=== PATIENT | female | born 1965 | race Caucasian/White ===

== ENCOUNTER 2017-01-04 13:18 | Day surgery (SDC) | payer OTHER ==
[~2017-01-04 13:18] MED LIST: Lactated Ringers 1,000 ML IV SCH; Lidocaine 1%/Sod Bicarbonate in NS 8.4% 1 ML Syringe PRN; Sodium Chloride 0.9% 10 ML Syringe FLUSH PRN
[2017-01-04] MEDS ORDERED: Scopolamine 1.5 MG Transdermal Patch TRDERM SCH (14:45)
--- NOTE | 2017-01-04 14:52 | PCM.PREANE ---
Preanesthetic Assessment - Procedure Proposed Procedure: Diagnostic EGD, Screening colonoscopy - Anesthesia/Transfusion/Family Hx Anesthesia History: Prior Anesthesia Without Reaction Type of Anesthesia Reaction: Excessive Nausea/Vomiting Family History of Anesthesia Reaction: No Transfusion History: Prior Transfusion Without Reaction Intubation History: Unknown Additional History: Wegeners disease, CKD stage 3 - Review of Systems General: No Symptoms Pulmonary: Other (Asthma- uses prn albuterol inhaler, advair bid ) Cardiovascular: Other (HTN) Gastrointestinal: No symptoms Neurological: No Symptoms Other: Reports: None - Physical Assessment NPO Status Date: 01/03/17 NPO Status Time: 17:00 O2 Sat by Pulse Oximetry: 94 Respiratory Rate: 16 Vital Signs: Last Vital Signs Temp 36.8 C 01/04/17 13:35 Pulse 60 01/04/17 13:35 Resp 16 01/04/17 13:35 BP 127/63 01/04/17 13:35 Pulse Ox 94 L 01/04/17 13:35 Height: 1.7 m Weight: 113.398 kg ASA Class: 2 Mental Status: Alert & Oriented x3 Airway Class: Mallampati = 3 Dentition: Reports: Normal Dentition Thyro-Mental Finger Breadths: 3 Mouth Opening Finger Breadths: 3 ROM/Head Extension: Full Lungs: Clear to auscultation, Normal respiratory effort Cardiovascular: Regular Rate, Regular Rhythm - Lab Values: Laboratory Last Values Sodium 142 mEq/L (136-145) 01/04/17 14:01 Potassium 4.1 mEq/L (3.5-5.1) 01/04/17 14:01 Chloride 106 mEq/L (98-107) 01/04/17 14:01 Carbon Dioxide 24 mEq/L (21-32) 01/04/17 14:01 Anion Gap 16.1 (5-15) H 01/04/17 14:01 BUN 26 mg/dL (7-18) H 01/04/17 14:01 Creatinine 1.6 mg/dL (0.55-1.02) H 01/04/17 14:01 Est Cr Clr Drug Dosing 39.54 mL/min 01/04/17 14:01 Estimated GFR (MDRD) 34 mL/min (>60) 01/04/17 14:01 BUN/Creatinine Ratio 16.3 (14-18) 01/04/17 14:01 Glucose 88 mg/dL (74-106) 01/04/17 14:01 Calcium 9.4 mg/dL (8.5-10.1) 01/04/17 14:01 - Allergies Allergies/Adverse Reactions: Allergies Allergy/AdvReac Type Severity Reaction Status Date / Time No Known Allergies Allergy Verified 01/01/17 14:16 - Blood Blood Available: No Product(s) Available: None - Anesthesia Plan Pre-Op Medication Ordered: None - Acknowledgements Anesthesia Type Planned: MAC Pt an Appropriate Candidate for the Planned Anesthesia: Yes Alternatives and Risks of Anesthesia Discussed w Pt/Guardian: Yes Pt/Guardian Understands and Agrees with Anesthesia Plan: Yes PreAnesthesia Questionnaire HEENT History: Reports: Otitis Media Other HEENT History: chronic hoarseness, nasal septum perforation, thrush Cardiovascular History: Reports: High Cholesterol, Hypertension Respiratory History: Reports: Asthma, Sleep Apnea Other Respiratory History: uses cpap, has hoarse voice, hx of PE.bronchosocpy Gastrointestinal History: Reports: GERD Other Gastrointestinal History: PPI use, PONV Genitourinary History: Reports: Chronic Renal Insuffiency, Other (See Below) Other Genitourinary History: wegeners granulomatosis [employer] AG[employer] History: Reports: None Other OB/BYN History: dense breast tissue Musculoskeletal History: Reports: None Other Musculoskeletal History: lower extremity edema, left total knee replacement Neurological History: Reports: Migraines Psychiatric History: Reports: None Endocrine/Metabolic History: Reports: Other (See Below) Other Endocrine/Metabolic History: thyromegally Hematologic History: Reports: Polycythemia, Other (See Below) Other Hematologic History: history of coumadin & xarelto Immunologic History: Reports: Other (See Below) Other Immunologic History: 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) Oncologic (Cancer) History: Reports: Breast Dermatologic History: Reports: None - Past Surgical History HEENT Surgical History: Other HEENT Surgeries/Procedures: nasal septal perforation, thrush GI Surgical History: Female Surgical History: Reports: Breast Biopsy, Breast Implant, Breast Reconstruction, Breast Reduction - SUBSTANCE USE Smoking Status *Q: Never Smoker Second Hand Smoke Exposure: No Recreational Drug Use History: No - HOME MEDS Home Medications: Home Meds Albuterol [Proair HFA] 2 puff INH Q4H PRN 07/23/16 [History] Doxazosin Mesylate [Cardura] 1 mg PO DAILY 07/23/16 [History] Exemestane 25 mg PO DAILY 07/23/16 [History] Hydrochlorothiazide 25 mg PO DAILY 07/23/16 [History] Multivitamin [Multivitamins] 1 tab PO DAILY 07/23/16 [History] Omeprazole 20 mg PO DAILY 07/23/16 [History] Potassium Chloride 10 meq PO DAILY 07/23/16 [History] Verapamil [Calan SR] 240 mg PO DAILY 07/23/16 [History] Fluticasone/Salmeterol [Advair 250-50 Diskus] 1 puff INH ASDIRECTED 01/04/17 [ History] - CURRENT (IN HOUSE) MEDS Current Meds: Current Medications Lactated Ringer's (Ringers, Lactated) 1,000 mls @ 125 mls/hr IV ASDIRECTED ASHU Stop: 01/04/17 23:00 Last Admin: 01/04/17 14:01 Dose: 125 mls/hr Lidocaine/Sodium Bicarbonate (Buffered Lidocaine 1% In Ns 8.4%) 0.25 ml .XX ONETIME PRN PRN Reason: Prior to IV Start Stop: 01/04/17 18:00 Scopolamine (Transderm-Scop) 1.5 mg TRDERM ONETIME ASHU Stop: 01/04/17 19:00 Last Admin: 01/04/17 14:45 Dose: 1.5 mg Sodium Chloride (Saline Flush) 10 ml FLUSH ASDIRECTED PRN PRN Reason: Keep Vein Open Stop: 01/04/17 18:00
--- NOTE | 2017-01-04 16:03 | PCM.HP ---
H&P History of Present Illness - General Date of Service: 01/04/17 Source of Information: Patient History Limitations: Reports: No Limitations - History of Present Illness Initial Comments - Free Text/Narative: 51 yo woman with inability to wean from PPIs and family hx of colon cancer presents for diagnostic EGD and screening colonoscopy. No changes in her health since she was last seen in the office. - Related Data Allergies/Adverse Reactions: Allergies Allergy/AdvReac Type Severity Reaction Status Date / Time No Known Allergies Allergy Verified 01/01/17 14:16 Home Medications: Home Meds Albuterol [Proair HFA] 2 puff INH Q4H PRN 07/23/16 [History] Doxazosin Mesylate [Cardura] 1 mg PO DAILY 07/23/16 [History] Exemestane 25 mg PO DAILY 07/23/16 [History] Hydrochlorothiazide 25 mg PO DAILY 07/23/16 [History] Multivitamin [Multivitamins] 1 tab PO DAILY 07/23/16 [History] Omeprazole 20 mg PO DAILY 07/23/16 [History] Potassium Chloride 10 meq PO DAILY 07/23/16 [History] Verapamil [Calan SR] 240 mg PO DAILY 07/23/16 [History] Fluticasone/Salmeterol [Advair 250-50 Diskus] 1 puff INH ASDIRECTED 01/04/17 [ History] Past Medical History HEENT History: Reports: Otitis Media Other HEENT History: chronic hoarseness, nasal septum perforation, thrush Cardiovascular History: Reports: High Cholesterol, Hypertension Respiratory History: Reports: Asthma, Sleep Apnea Other Respiratory History: uses cpap, has hoarse voice, hx of PE.bronchosocpy Gastrointestinal History: Reports: GERD Other Gastrointestinal History: PPI use, PONV Genitourinary History: Reports: Chronic Renal Insuffiency, Other (See Below) Other Genitourinary History: wegeners granulomatosis [employer]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 History: Reports: None Other OB/BYN History: dense breast tissue Musculoskeletal History: Reports: None Other Musculoskeletal History: lower extremity edema, left total knee replacement Neurological History: Reports: Migraines Psychiatric History: Reports: None Endocrine/Metabolic History: Reports: Other (See Below) Other Endocrine/Metabolic History: thyromegally Hematologic History: Reports: Polycythemia, Other (See Below) Other Hematologic History: history of coumadin & xarelto Immunologic History: Reports: Other (See Below) Other Immunologic History: 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) Oncologic (Cancer) History: Reports: Breast Dermatologic History: Reports: None - Past Surgical History HEENT Surgical History: Other HEENT Surgeries/Procedures: nasal septal perforation, thrush GI Surgical History: Female Surgical History: Reports: Breast Biopsy, Breast Implant, Breast Reconstruction, Breast Reduction Social & Family History - Family History HEENT: Reports: Cataract GI: Reports: GERD OBGYN: Reports: Endocrine/Metabolic: Reports: Diabetes, type II Other Endocrine/Metabolic Family History: dad Hematologic: Reports: None Dermatologic: Reports: Psoriasis Other Dermatologic Family History: dad Oncologic: Reports: Colon Other Oncologic Family History: mom passed - Tobacco Use Smoking Status *Q: Never Smoker Second Hand Smoke Exposure: No - Caffeine Use Caffeine Use: Reports: Coffee, Soda - Recreational Drug Use Recreational Drug Use: No Drug Use in Last 12 Months: No H&P Review of Systems - Review of Systems: Review Of Systems: ROS reveals no pertinent complaints other than HPI. Exam - Exam Exam: See Below - Vital Signs Vital Signs: Last Vital Signs Temp 98.2 F 01/04/17 13:35 Pulse 60 01/04/17 13:35 Resp 16 01/04/17 14:57 BP 127/63 01/04/17 13:35 Pulse Ox 94 L 01/04/17 14:57 Weight: 250 lb - Exam General: Alert, Oriented, Cooperative HEENT: Conjunctiva Clear. No: Scleral Icterus Neck: Supple Lungs: Normal Respiratory Effort Cardiovascular: Regular Rate Abdomen: Soft. No: Distention, Guarding, Rigidity Extremities: No: Cyanosis Skin: Warm, Dry, Intact Neurological: Normal Speech Neuro Extensive - Mental Status: Alert, Oriented x3, Normal Mood/Affect, Normal Cognition Psychiatric: Alert, Normal Affect, Normal Mood - Patient Data Lab Results Last 24 hrs: Laboratory Results - last 24 hr 01/04/17 Range/Units 14:01 Sodium 142 (136-145) mEq/L Potassium 4.1 (3.5-5.1) mEq/L Chloride 106 (98-107) mEq/L Carbon Dioxide 24 (21-32) mEq/L Anion Gap 16.1 H (5-15) BUN 26 H (7-18) mg/dL Creatinine 1.6 H (0.55-1.02) mg/dL Est Cr Clr Drug Dosing 39.54 mL/min Estimated GFR (MDRD) 34 (>60) mL/min BUN/Creatinine Ratio 16.3 (14-18) Glucose 88 (74-106) mg/dL Calcium 9.4 (8.5-10.1) mg/dL Result Diagrams: 01/04/17 14:01 *Q Meaningful Use (ADM) - VTE *Q VTE Criteria *Q: - Stroke *Q Stroke Criteria *Q: - AMI *Q AMI Criteria *Q: - Problem List (1) GERD (gastroesophageal reflux disease) SNOMED Code(s): 037905452 ICD Code: K21.9 - GASTRO-ESOPHAGEAL REFLUX DISEASE WITHOUT ESOPHAGITIS Status: Acute Current Visit: Yes (2) Family hx of colon cancer SNOMED Code(s): 258090465 ICD Code: Z80.0 - FAMILY HISTORY OF MALIGNANT NEOPLASM OF DIGESTIVE ORGANS Status: Acute Current Visit: Yes Problem List Initiated/Reviewed/Updated: Yes Orders Last 24hrs: Active Orders 24 hr Category Date Time Status Peripheral IV Care [RC] . DIRECTED Care 01/04/17 00:01 Active Verify Patient Consent Obtain [RC] ASDIRECTED Care 01/04/17 00:01 Active Lactated Ringers [Ringers, Lactated] 1,000 ml Med 01/04/17 00:01 Active IV ASDIRECTED Lidocaine 1%/Sod Bicarbonate [Buffered Lidocaine 1% in Med 01/04/17 00:01 Active NS 8.4%] 0.25 ml .XX ONETIME PRN Scopolamine [Transderm-Scop] Med 01/04/17 14:45 Active 1.5 mg TRDERM ONETIME Sodium Chloride 0.9% [Saline Flush] Med 01/04/17 00:01 Active 10 ml FLUSH ASDIRECTED PRN Medication Administration Instruction [OM.PC] Routine Oth 01/04/17 00:01 Ordered Peripheral IV Insertion Adult [OM.PC] Routine Oth 01/04/17 00:01 Ordered Medication Orders Lactated Ringer's (Ringers, Lactated) 1,000 mls @ 125 mls/hr IV ASDIRECTED ASHU Stop: 01/04/17 23:00 Last Admin: 01/04/17 14:01 Dose: 125 mls/hr Lidocaine/Sodium Bicarbonate (Buffered Lidocaine 1% In Ns 8.4%) 0.25 ml .XX ONETIME PRN PRN Reason: Prior to IV Start Stop: 01/04/17 18:00 Scopolamine (Transderm-Scop) 1.5 mg TRDERM ONETIME ASHU Stop: 01/04/17 19:00 Last Admin: 01/04/17 14:45 Dose: 1.5 mg Sodium Chloride (Saline Flush) 10 ml FLUSH ASDIRECTED PRN PRN Reason: Keep Vein Open Stop: 01/04/17 18:00 Assessment/Plan Comment:: 51 yo woman w/ hx of inability to wean from PPIs and family hx of colon cancer Proceed with EGD and colonoscopy as planned.
[2017-01-04] MEDS ORDERED: fentaNYL 100 MCG/2 ML SDV ONE (16:18)
[2017-01-04] MEDS ORDERED: Midazolam 1 MG/ML 2 ML SDV ONE (16:19)
[2017-01-04] MEDS ORDERED: Propofol 200 MG/20 ML SDV ONE ×3 (16:19→16:44)
--- NOTE | 2017-01-04 16:50 | PCM48HPAN ---
Post Anesthesia Note - EVALUATION WITHIN 48HRS OF ANESTHETIC Vital Signs in Normal Range: Yes Patient Participated in Evaluation: Yes Respiratory Function Stable: Yes Airway Patent: Yes Cardiovascular Function Stable: Yes Hydration Status Stable: Yes Pain Control Satisfactory: Yes Nausea and Vomiting Control Satisfactory: Yes Mental Status Recovered: Yes
--- NOTE | 2017-01-04 16:52 | PCM.OPNOTE ---
- General Post-Op/Procedure Note Date of Surgery/Procedure: 01/04/17 Operative Procedure(s): Diagnostic EGD with cold forceps biopsy, high risk screening colonoscopy Pre Op Diagnosis: Inability to wean from proton pump inhibitors, family history of colon cancer Post-Op Diagnosis: Gastritis, gastric polyps, diverticulosis, poor colonoscopy prep Anesthesia Technique: MAC Primary Surgeon: Faiza Diaz Anesthesia Provider: Miko Ford Pathology: 1. Small bowel biopsy 2. Antral biopsy 3. Distal esophageal biopsy 4. Gastric polyp Fluid Replacement, Intraop: 1,400 (mL crystalloid ) EBL in mLs: 1 Complications: None Condition: Good Free Text/Narrative:: INDICATION FOR PROCEDURE: The patient is a 51-year-old woman who is a patient of Dr. Antonieta Rolon who presents for evaluation for high risk screening colonoscopy due to family history of colon cancer in her mother and 2 uncles. She also had a history of reflux, heartburn, and inability to wean from a PPI. Performing a colonoscopy and EGD and the associated risks of the procedures had been discussed with the patient. The patient found these risks acceptable and agreed to proceed. DESCRIPTION OF PROCEDURE: The patient was taken to the operating room and placed in the left lateral decubitus position. After induction of adequate sedation, a bite block was placed. A standard Olympus gastroscope was inserted into the oropharynx and guided down the esophagus without difficulty. The gastroesophageal junction was appreciated at 39 cm from the teeth. There was no evidence of stricture or esophageal ulcerations. The scope was advanced into the stomach, and there was mild gastritis, worst around the antrum. The scope was passed into the proximal jejunum and the duodenum which were unremarkable. There were no petechiae or ulcerations. The proximal jejunum was grossly normal in appearance. Multiple cold forceps biopsies were obtained of the proximal jejunum and duodenum. The scope was withdrawn into the antrum, and additional cold forceps biopsies were obtained. The remainder of the gastric body was examined, and there a few small gastric polyps, the largest was removed with cold forceps polypectomy. The scope was retroflexed, and there was no evidence of hiatal hernia. The scope was straightened and withdrawn to the GE junction. Additional cold forceps biopsies were obtained of the distal esophagus. The scope was withdrawn through the remainder of the esophagus and no further abnormalities were noted. The posterior oropharynx was grossly normal in appearance. The scope was fully withdrawn and attention was then turned to the colonoscopy. A digital rectal exam was performed which was unremarkable. An Olympus colonoscope was inserted into the rectum and guided under direct visualization to the appendiceal orifice and ileocecal valve. The scope was then slowly withdrawn through the colon. The quality of the prep was poor and some small polyps or other lesions may have been missed due to the quality of the prep. There was no evidence of angiodysplasias. Diverticulosis was present in the sigmoid colon. There were no large mass lesions or obvious large polyps. The scope was withdrawn into the rectum and retroflexed. There was no significant prominence of the patient's internal hemorrhoids. The scope was straightened, the colon was desufflated,and the scope was withdrawn. The patient was awakened from sedation and transferred to the recovery room in stable condition having tolerated the procedure well. POSTOPERATIVE PLAN: I discussed with the patient and her family my intraoperative findings and recommendations. The patient will follow up in approximately 7-10 days to discuss pathology and how their symptoms are progressing. The patient is to continue her omeprazole 20mg daily. She should have a repeat colonoscopy in one year due to the poor prep. I have asked the patient to follow a GERD\gastritis diet and increased the fiber in her diet. The patient is to call with any worsening of symptoms or questions prior to the appointment.
[2017-01-04 17:49] VITALS: BP 144/83
== END 2017-01-04 17:50 | disposition home or self-care (01) ==
LOC: JD.SDS 13:18
PROVIDERS: ATTEND Surgery
PROC: 0DB98ZZ Excision of Duodenum, Via Natural or Artificial Opening Endoscopic (ICD-10-PCS; principal; 2017-01-04)
PROC: 0DB68ZZ Excision of Stomach, Via Natural or Artificial Opening Endoscopic (ICD-10-PCS; 2017-01-04)
PROC: 0DBA8ZZ Excision of Jejunum, Via Natural or Artificial Opening Endoscopic (ICD-10-PCS; 2017-01-04)
PROC: 0DJD8ZZ Inspection of Lower Intestinal Tract, Via Natural or Artificial Opening Endoscopic (ICD-10-PCS; 2017-01-04)
DX: Z12.11 Encounter for screening for malignant neoplasm of colon (principal); K57.30 Diverticulosis of large intestine without perforation or abscess without bleeding; K31.7 Polyp of stomach and duodenum; K29.70 Gastritis, unspecified, without bleeding; I12.9 Hypertensive chronic kidney disease with stage 1 through stage 4 chronic kidney disease, or unspecified chronic kidney disease; N18.3 Chronic kidney disease, stage 3 (moderate); J45.909 Unspecified asthma, uncomplicated; E78.00 Pure hypercholesterolemia, unspecified; M31.30 Wegener's granulomatosis without renal involvement; G47.30 Sleep apnea, unspecified; Z99.89 Dependence on other enabling machines and devices; Z79.01 Long term (current) use of anticoagulants; Z79.51 Long term (current) use of inhaled steroids; Z79.899 Other long term (current) drug therapy; Z90.11 Acquired absence of right breast and nipple; Z95.5 Presence of coronary angioplasty implant and graft; Z98.890 Other specified postprocedural states; Z85.3 Personal history of malignant neoplasm of breast; Z86.711 Personal history of pulmonary embolism; Z80.0 Family history of malignant neoplasm of digestive organs
CPT/HCPCS: 36415; 43239; 45378; 80048; 88305; A9270; J3010; J7120; J2250; J2704

== ENCOUNTER 2018-03-18 07:59 | Day surgery (SDC) | payer OTHER ==
[~2018-03-18 07:59] MED LIST changes: +Lidocaine 1%/Sod Bicarbonate in NS 8.4% 1 ML Syringe IDERM PRN; -Lidocaine 1%/Sod Bicarbonate in NS 8.4% 1 ML Syringe PRN; +Propofol 200 MG/20 ML SDV ONE
[2018-03-18] MEDS ORDERED: Ondansetron 4 MG/2 ML SDV ONE (08:36)
[2018-03-18] MEDS ORDERED: Lidocaine 1% 4 ML ONE (08:36)
[2018-03-18] MEDS ORDERED: Propofol 200 MG/20 ML SDV ONE ×2 (08:36→08:37)
[2018-03-18] MEDS ORDERED: fentaNYL 100 MCG/2 ML SDV ONE (08:37)
[2018-03-18] MEDS ORDERED: Scopolamine 1.5 MG Transdermal Patch TOP ONE (08:51)
--- NOTE | 2018-03-18 09:02 | PCM.PREANE ---
Preanesthetic Assessment - Anesthesia/Transfusion/Family Hx Anesthesia History: Prior Anesthesia Reaction Type of Anesthesia Reaction: Excessive Nausea/Vomiting Family History of Anesthesia Reaction: No Transfusion History: Prior Transfusion Without Reaction Intubation History: Unknown - Review of Systems General: No Symptoms Pulmonary: No Symptoms, Other (Asthma, took Advair this morning. Controlled, denies SOB. ARI uses CPAP machine. ) Cardiovascular: No Symptoms, Other (Elevated cholesterol, hypertension, on medication. ) Gastrointestinal: Other (GERD, controlled with medication, took this am. ) Neurological: Headache (History of Migraines.) Other: Reports: None (Chronic Kidney Disease, Stage III, monitoring, stable. ), Thyroid Problems (Nodule) - Physical Assessment NPO Status Date: 03/17/18 NPO Status Time: 19:00 Pulse: 67 O2 Sat by Pulse Oximetry: 95 Respiratory Rate: 20 Blood Pressure: 151/79 Temperature: 37.1 C Weight: 114 kg ASA Class: 3 Mental Status: Alert & Oriented x3 Airway Class: Mallampati = 2 Dentition: Reports: Normal Dentition, Bridge Thyro-Mental Finger Breadths: 3 Mouth Opening Finger Breadths: 3 ROM/Head Extension: Full Lungs: Clear to Auscultation, Normal Respiratory Effort Cardiovascular: Regular Rate, Regular Rhythm - Allergies Allergies/Adverse Reactions: Allergies Allergy/AdvReac Type Severity Reaction Status Date / Time No Known Allergies Allergy Verified 01/01/17 14:16 - Acknowledgements Anesthesia Type Planned: MAC Pt an Appropriate Candidate for the Planned Anesthesia: Yes Alternatives and Risks of Anesthesia Discussed w Pt/Guardian: Yes Pt/Guardian Understands and Agrees with Anesthesia Plan: Yes Additional Comments: Breast Cancer, mastectomy on the right. NO BP or IVs on the right. 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, chronic kidney disease stage III [employer]GER [employer]ING History: Reports: None Other OB/BYN History: dense breast tissue Musculoskeletal History: Reports: None Other Musculoskeletal History: lower extremity edema, left total knee replacement Neurological History: Reports: Migraines Psychiatric History: Reports: None Endocrine/Metabolic History: Reports: Other (See Below) Other Endocrine/Metabolic History: hair loss Hematologic History: Reports: Polycythemia, Other (See Below) Other Hematologic History: erythrocytosis Immunologic History: Reports: Other (See Below) Other Immunologic History: 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) Oncologic (Cancer) History: Reports: Breast Dermatologic History: Reports: None - Past Surgical History HEENT Surgical History: Reports: Naso-Sinus Surgery Other HEENT Surgeries/Procedures: nasal septal perforation, thrush Cardiovascular Surgical History: Reports: None Respiratory Surgical History: Reports: None GI Surgical History: Reports: Colonoscopy, EGD Female Surgical History: Reports: Mastectomy Neurological Surgical History: Reports: None Oncologic Surgical History: Reports: Mastectomy - SUBSTANCE USE Smoking Status *Q: Never Smoker Recreational Drug Use History: No - HOME MEDS Home Medications: Home Meds Albuterol [Proair HFA] 2 puff INH Q4H PRN 07/23/16 [History] Doxazosin Mesylate [Cardura] 1 mg PO DAILY 07/23/16 [History] Exemestane 25 mg PO DAILY 07/23/16 [History] Hydrochlorothiazide 25 mg PO DAILY 07/23/16 [History] Multivitamin [Multivitamins] 1 tab PO DAILY 07/23/16 [History] Omeprazole 20 mg PO DAILY 07/23/16 [History] Potassium Chloride 10 meq PO DAILY 07/23/16 [History] Verapamil [Calan SR] 240 mg PO DAILY 07/23/16 [History] Fluticasone/Salmeterol [Advair 250-50 Diskus] 1 puff INH ASDIRECTED 01/04/17 [ History] - CURRENT (IN HOUSE) MEDS Current Meds: Current Medications Lactated Ringer's (Ringers, Lactated) 1,000 mls @ 125 mls/hr IV ASDIRECTED ASHU Stop: 03/18/18 23:00 Lidocaine/Sodium Bicarbonate (Buffered Lidocaine 1% In Ns 8.4%) 0.25 ml IDERM ONETIME PRN PRN Reason: Prior to IV Start Stop: 03/18/18 18:00 Sodium Chloride (Saline Flush) 10 ml FLUSH ASDIRECTED PRN PRN Reason: Keep Vein Open Stop: 03/18/18 18:00 Discontinued Medications Fentanyl (Sublimaze) Confirm Administered Dose 100 mcg .ROUTE .STK-MED ONE Stop: 03/18/18 08:38 Lidocaine HCl (Xylocaine-Mpf 1%) Confirm Administered Dose 4 mls @ as directed .ROUTE .STK-MED ONE Stop: 03/18/18 08:37 Ondansetron HCl (Zofran) Confirm Administered Dose 4 mg .ROUTE .STK-MED ONE Stop: 03/18/18 08:37 Propofol (Diprivan 20 Ml) Confirm Administered Dose 400 mg .ROUTE .STK-MED ONE Stop: 03/18/18 07:59 Propofol (Diprivan 20 Ml) Confirm Administered Dose 200 mg .ROUTE .STK-MED ONE Stop: 03/18/18 08:37 Propofol (Diprivan 20 Ml) Confirm Administered Dose 200 mg .ROUTE .STK-MED ONE Stop: 03/18/18 08:38 Scopolamine (Transderm-Scop) 1.5 mg TOP ONETIME ONE Stop: 03/18/18 08:52
--- NOTE | 2018-03-18 11:15 | PCM.OPNOTE ---
- General Post-Op/Procedure Note Date of Surgery/Procedure: 03/18/18 Operative Procedure(s): colonoscopy to cecum with polpectomy and biopsy Findings: sigmoid polyp and sigmoid mucosa irregularity. Few diverticula in descending and sigmoid colon. Pre Op Diagnosis: colon cancer high risk surveillance colonoscopy Post-Op Diagnosis: same Anesthesia Technique: MAC Primary Surgeon: Raisa Goldberg Anesthesia Provider: Lillian Lowery EBL in mLs: 0 Complications: none apparent Condition: Good
[2018-03-18 11:19] VITALS: BP 127/79
--- NOTE | 2018-03-18 11:19 | PCM48HPAN ---
Post Anesthesia Note - EVALUATION WITHIN 48HRS OF ANESTHETIC Vital Signs in Normal Range: Yes Patient Participated in Evaluation: Yes Respiratory Function Stable: Yes Airway Patent: Yes Cardiovascular Function Stable: Yes Hydration Status Stable: Yes Pain Control Satisfactory: Yes Nausea and Vomiting Control Satisfactory: Yes Mental Status Recovered: Yes Pulse Rate: 70 SaO2: 100 Resp Rate: 16 Temperature: 36.1 C Blood Pressure: 127/79
--- NOTE | 2018-03-18 12:17 | PCM.PRNOTE ---
- Free Text/Narrative Note: Operative Report Date of Surgery/Procedure: March 18, 2018 Operative Procedure: Colonoscopy to cecum with polypectomy and biopsy Pre Op Diagnosis: colorectal cancer screening for surveillance with strong family history of colon cancer Post-Op Diagnosis: Same Surgeon: Raisa Goldberg Anesthesia Technique: MAC Anesthesia Provider: Lillian Patton IV Fluid Replacement, Intraop: 1500 cc Output, Urine Amount: 0 cc EBL : 0 cc Findings: Irregularity of the transverse colon mucosa and transverse colon polyp Specimens: , Transverse colon, biopsy and transverse colon polyp Indication: The patient is a 52 year-old lady who presented to the outpatient clinic requesting colorectal cancer screening. The patient has a family history of colon cancer. She had an attempted colonoscopy last year, but this was not completed because the patient had poor prep. We discussed the procedure of a surveillance colonoscopy including the polypectomy and biopsy. Risks of bleeding and perforation were discussed, the patient understood and wished to proceed. Written and consent was obtained Description of the procedure: The patient was brought to the endoscopy suite and placed in the left lateral decubitus position. Appropriate monitors were applied. The patient was given MAC anesthesia. An anorectal examination was performed, revealing external hemorrhoids. The scope was placed into the rectum and advanced to cecum with minimal difficulty. The patients cecum was entered, and the ileocecal valve and appendiceal orifice were identified and normal. At this point, the scope was withdrawn, paying careful attention to the mucosa. The patient had good bowel prep, allowing for visualization of 85-90 % of the mucosa. In the transverse colon, there were some irregularity of the mucosa and this was biopsied with cold biopsy forceps. This was biopsied. In addition, a transverse colon polyp was noted and this was removed with cold biopsy forceps. In the rectum, the scope was retroflexed and no abnormalities were noted, except for some hemorrhoidal tissue. The scope was placed back in the lumen and the excess air was aspirated. The patient tolerated the procedure well. Complications: none apparent Condition: Good, transported to PACU in stable condition Raisa Goldberg MD General Surgery
== END 2018-03-18 12:05 | disposition home or self-care (01) ==
LOC: JD.SDS 07:59
PROVIDERS: ATTEND Surgery
DX: K63.5 Polyp of colon (principal); K63.89 Other specified diseases of intestine; K64.9 Unspecified hemorrhoids; J45.909 Unspecified asthma, uncomplicated; I12.9 Hypertensive chronic kidney disease with stage 1 through stage 4 chronic kidney disease, or unspecified chronic kidney disease; N18.3 Chronic kidney disease, stage 3 (moderate); K21.9 Gastro-esophageal reflux disease without esophagitis; E78.00 Pure hypercholesterolemia, unspecified; E03.9 Hypothyroidism, unspecified; E04.1 Nontoxic single thyroid nodule; G47.30 Sleep apnea, unspecified; Z99.89 Dependence on other enabling machines and devices; Z79.899 Other long term (current) drug therapy; Z88.8 Allergy status to other drugs, medicaments and biological substances; Z80.0 Family history of malignant neoplasm of digestive organs; Z98.890 Other specified postprocedural states
CPT/HCPCS: 45380; A9270; J2405; J2704; J3010; J7120; 00811; J2001

== ENCOUNTER 2020-04-29 22:58 | Observation (INO) | payer OTHER ==
[2020-04-29] MEDS ORDERED: HYDROmorphone 1 MG/ML Syringe IVPUSH STA (23:40)
[2020-04-29] MEDS ORDERED: Ondansetron 4 MG/2 ML SDV IVPUSH ONE (23:40)
[2020-04-29] MEDS ORDERED: Sodium Chloride 0.9% 1,000 ML IV SCH (23:45)
--- NOTE | 2020-04-29 23:47 | EDM.PDOC ---
ED HPI GENERAL MEDICAL PROBLEM - General Chief Complaint: Abdominal Pain Stated Complaint: abdominal pain Time Seen by Provider: 04/29/20 23:24 Source of Information: Reports: Patient History Limitations: Reports: No Limitations - History of Present Illness INITIAL COMMENTS - FREE TEXT/NARRATIVE: Mrs. Ray is a very pleasant 54-year-old woman who states that she has had heartburn coming and going for the past 2 weeks, approximately. It is worse in the evening, after eating. She has been taking Maalox tablets, which helped up until yesterday, when they stopped helping. Yesterday her heartburn was worse. She then developed right upper quadrant abdominal pain that radiates through to her right infrascapular area, around 20:00 tonight. She describes the character of the pain as "continually". She has had both nausea and vomiting. She feels constipated today. No recent diarrhea or urinary symptoms. No recent fever. No prior right upper abdominal pain. The patient states that she took some Maalox tonight, which did not help. She states that she last ate around 18:00. Here in the ED, the patient's initial BP was found to be mildly elevated at 156/90, otherwise, she was hemodynamically stable, afebrile, saturating 100% on room air. Other than her abdominal pain and denies nausea and vomiting, the patient denies having a recent fever, chills, sore throat, ear pain, nasal or sinus congestion, cough, dyspnea, chest pain, palpitations, constipation, diarrhea, urinary symptoms, recent weight gain or weight loss, recent bloody bowel movements or black bowel movements, recent joint aches, headaches, or rashes. The patient's PCP is Dr. Antonieta Rolon. She does not recall the name of her Chemical Test Engineer. Her pulmonary midlevel is Poli Lowe NP. She has an appointment to meet the Wine Pasteurizer Dr. Preston Box next week. Right Abdomen Pain Score (Numeric/FACES): 9 - Related Data Allergies Allergy/AdvReac Type Severity Reaction Status Date / Time lisinopril AdvReac Other Verified 04/29/20 23:18 Home Meds: Home Meds Albuterol [Proair HFA] 2 puff INH Q4H PRN 07/23/16 [History] Hydrochlorothiazide 25 mg PO DAILY 07/23/16 [History] Multivitamin [Multivitamins] 1 tab PO DAILY 07/23/16 [History] Omeprazole 20 mg PO DAILY 07/23/16 [History] Potassium Chloride 10 meq PO DAILY 07/23/16 [History] Fluticasone Propion/Salmeterol [Advair 250-50 Diskus] 1 puff INH ASDIRECTED 01/04/17 [History] Levothyroxine 25 mcg PO ASDIRECTED 03/31/18 [History] Levothyroxine [Synthroid] 50 mcg PO ASDIRECTED 03/31/18 [History] Simvastatin [Zocor] 10 mg PO DAILY 03/31/18 [History] Past Medical History HEENT History: Reports: Impaired Vision Cardiovascular History: Reports: High Cholesterol, Hypertension Respiratory History: Reports: Asthma, PE, Sleep Apnea (nightly CPAP) Gastrointestinal History: Reports: GERD Genitourinary History: Reports: Chronic Renal Insuffiency Musculoskeletal History: Reports: Osteoarthritis Endocrine/Metabolic History: Reports: Obesity/BMI 30+ Immunologic History: Reports: Other (See Below) (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)) Oncologic (Cancer) History: Reports: Breast (right) - Past Surgical History HEENT Surgical History: Reports: Naso-Sinus Surgery GI Surgical History: Reports: Colonoscopy (x 4), EGD Musculoskeletal Surgical History: Reports: Knee Replacement (left) Oncologic Surgical History: Reports: Mastectomy (right) Social & Family History - Family History HEENT: Reports: Cataract GI: Reports: GERD OBGYN: Reports: Endocrine/Metabolic: Reports: Diabetes, type II Other Endocrine/Metabolic Family History: dad Hematologic: Reports: None Dermatologic: Reports: Psoriasis Other Dermatologic Family History: dad Oncologic: Reports: Colon Other Oncologic Family History: mom passed - Tobacco Use Tobacco Use Status *Q: Never Tobacco User - Caffeine Use Caffeine Use: Reports: Coffee - Alcohol Use Alcohol Use History: No - Recreational Drug Use Recreational Drug Use: No - Living Situation & Occupation Living situation: Reports: , with Spouse Occupation: Unemployed ED ROS GENERAL - Review of Systems Review Of Systems: Comprehensive ROS is negative, except as noted in HPI. ED EXAM, GI/ABD - Physical Exam Exam: See Below Exam Limited By: No Limitations General Appearance: Alert, WD/WN, Mild Distress (appears very uncomfortable) Eyes: Bilateral: Normal Appearance, EOMI Ears: Normal External Exam, Hearing Grossly Normal Nose: Normal Inspection Throat/Mouth: Normal Inspection, Normal Lips, Normal Voice, No Airway Compromise Head: Atraumatic, Normocephalic Neck: Normal Inspection, Full Range of Motion Respiratory/Chest: No Respiratory Distress, Lungs Clear, Normal Breath Sounds, No Accessory Muscle Use Cardiovascular: Normal Peripheral Pulses, Regular Rate, Rhythm, No Gallop, No JVD, No Murmur, No Rub GI/Abdominal Exam: Normal Bowel Sounds, Soft, No Organomegaly, No Distention, No Abnormal Bruit, No Mass, Tender (exquisite, to the right upper quadrant, with no significant tenderness elsewhere. True Block's sign present.) Back Exam: Normal Inspection, Full Range of Motion. No: CVA Tenderness (L), CVA Tenderness (R), Paraspinal Tenderness, Vertebral Tenderness Extremities: Normal Inspection, Normal Range of Motion, Normal Capillary Refill Neurological: Alert, Oriented, Normal Cognition, No Motor/Sensory Deficits Psychiatric: Normal Affect Skin Exam: Warm, Dry, Intact, Normal Color, No Rash Course - Vital Signs Last Recorded V/S: Last Vital Signs Temp 36.6 C 04/29/20 23:12 Pulse 64 04/29/20 23:12 Resp 18 04/29/20 23:12 BP 156/90 H 04/29/20 23:12 Pulse Ox 100 04/29/20 23:12 - Orders/Labs/Meds Orders: Active Orders 24 hr Category Date Time Status Abdomen Ltd [US] Stat Exams 04/30/20 00:15 Taken Abdomen Pelvis w Cont [CT] Stat Exams 04/29/20 23:40 Taken Lactated Ringers @ 100 MLS/HR(1000ml Bag) Med 04/30/20 03:45 Ordered Lactated Ringers [Ringers, Lactated] 1,000 ml IV ASDIRECTED Piperacillin/Tazobactam 4.5 GM - First Dose Med 04/30/20 03:36 Ordered Piperacillin/Tazobactam [Piperacil-Tazobact] 4.5 gm Sodium Chloride 0.9% [Normal Saline] 100 ml IV ONETIME Medication Orders Piperacillin Sod/Tazobactam (Sod 4.5 gm/ Sodium Chloride) 100 mls @ 200 mls/hr IV ONETIME ONE Stop: 04/30/20 04:05 Last Admin: 04/30/20 03:51 Dose: 200 mls/hr Documented by: Lactated Ringer's (Ringers, Lactated) 1,000 mls @ 100 mls/hr IV ASDIRECTED [facility] Labs: Laboratory Tests 04/30/20 04/30/20 04/30/20 Range/Units 00:07 00:07 01:52 WBC 8.90 (3.98-10.04) K/mm3 RBC 4.59 (3.98-5.22) M/mm3 Hgb 14.5 D (11.2-15.7) gm/dl Hct 42.4 (34.1-44.9) % MCV 92.4 D (79.4-94.8) fl MCH 31.6 (25.6-32.2) pg MCHC 34.2 (32.2-35.5) g/dl RDW Std Deviation 44.4 (36.4-46.3) fL Plt Count 184 (182-369) K/mm3 MPV 11.0 (9.4-12.3) fl Neutrophils % (Manual) 76 H (40-60) % Band Neutrophils % 0 (0-10) % Lymphocytes % (Manual) 17 L (20-40) % Atypical Lymphs % 0 % Monocytes % (Manual) 6 (2-10) % Eosinophils % (Manual) 1 (0.7-5.8) % Basophils % (Manual) 0 L (0.1-1.2) Platelet Estimate Adequate RBC Morph Comment Normal Sodium 139 (136-145) mEq/L Potassium 3.0 L (3.5-5.1) mEq/L Chloride 101 (98-107) mEq/L Carbon Dioxide 23 (21-32) mEq/L Anion Gap 18.0 H (5-15) BUN 28 H (7-18) mg/dL Creatinine 1.9 H (0.55-1.02) mg/dL Est Cr Clr Drug Dosing 33.35 mL/min Estimated GFR (MDRD) 27 (>60) mL/min BUN/Creatinine Ratio 14.7 (14-18) Glucose 147 H (74-106) mg/dL Calcium 9.6 (8.5-10.1) mg/dL Magnesium 1.5 L (1.8-2.4) mg/dl Total Bilirubin 0.7 (0.2-1.0) mg/dL AST 17 (15-37) U/L ALT 27 (14-59) U/L Alkaline Phosphatase 77 (46-116) U/L Total Protein 7.0 (6.4-8.2) g/dl Albumin 3.5 (3.4-5.0) g/dl Globulin 3.5 gm/dL Albumin/Globulin Ratio 1.0 (1-2) Lipase 193 (73-393) U/L SARS-CoV-2 RNA (DENISE) Negative (NEGATIVE) Meds: Medications Generic Name Dose Route Start Last Admin Trade Name Freq PRN Reason Stop Dose Admin Piperacillin Sod/Tazobactam 100 mls @ 200 mls/hr 04/30/20 03:36 04/30/20 03:51 Sod 4.5 gm/ Sodium Chloride IV 04/30/20 04:05 200 mls/hr ONETIME ONE Administration Lactated Ringer's 1,000 mls @ 100 mls/hr 04/30/20 03:45 Ringers, Lactated IV ASDIRECTED ASHU Discontinued Medications Generic Name Dose Route Start Last Admin Trade Name Freq PRN Reason Stop Dose Admin Hydromorphone HCl 1 mg 04/29/20 23:40 04/29/20 23:52 Dilaudid IVPUSH 04/29/20 23:41 1 mg ONETIME STA Administration Hydromorphone HCl 1 mg 04/30/20 01:27 04/30/20 01:39 Dilaudid IVPUSH 04/30/20 01:28 1 mg ONETIME ONE Administration Hydromorphone HCl 1 mg 04/30/20 03:25 04/30/20 03:32 Dilaudid IVPUSH 04/30/20 03:26 1 mg ONETIME ONE Administration Sodium Chloride 1,000 mls @ 150 mls/hr 04/29/20 23:45 04/29/20 23:52 Normal Saline IV 150 mls/hr ASDIRECTED ASHU Administration Magnesium Sulfate 2 gm in 50 mls @ 25 mls/hr 04/30/20 01:03 04/30/20 01:17 Magnesium Sulfate In Water Premix IV 04/30/20 03:02 25 mls/hr ONETIME STA Administration Ondansetron HCl 4 mg 04/29/20 23:40 04/29/20 23:52 Zofran IVPUSH 04/29/20 23:41 4 mg ONETIME ONE Administration Ondansetron HCl 4 mg 04/30/20 01:27 04/30/20 01:39 Zofran IVPUSH 04/30/20 01:28 4 mg ONETIME ONE Administration - Re-Assessments/Exams Free Text/Narrative Re-Assessment/Exam: 04/29/20 23:43 As above, the patient has had epigastric abdominal pain consistent with heartburn on and off for the past 2 weeks, then developed right upper quadrant abdominal pain that has become more severe, along with nausea and vomiting, about 2 hours after eating dinner tonight. On examination, she is exquisitely tender to palpation of her right upper quadrant, with a true positive Block's sign. Her pain radiates through to her right infrascapular area, but she has no back or CVA tenderness. Her presentation is entirely consistent with acute cholecystitis. I have therefore ordered a work-up that includes an ultrasound of the right upper quadrant, to be followed by a CT of her abdomen and pelvis with oral and IV contrast, along with blood work. The meantime, the patient will be given IV Dilaudid, IV Zofran, and IV fluid. 04/30/20 00:59 The patient's CBC is unremarkable. Her CMP is remarkable for potassium depressed at 3.0, and anion gap elevated at 18.0, but with a bicarbonate normal at 23, a BUN/Cr 28/1.9, and a blood glucose elevated 147, with the remainder of her CMP being unremarkable. Her magnesium level is depressed at 1.5. Her lipase level is within normal limits at 193. Review of prior labs finds that the patient's BUN/Cr was 26/1.6 on 01/04/2017. Based on the above, I have ordered a 2 g Mg-rider. After that finishes infusing, the patient will be given 40 mEq of oral KCl. 04/30/20 01:26 Ultrasound of the right upper quadrant is read by Courtney as: 1. Study limited by combination of body habitus and difficulty with patient positioning. 2. Gallbladder filled with luminal sludge associated with mild gallbladder wall thickening and positive sonographic Block's sign. 3. No detected gallstones or biliary distention. 04/30/20 03:13 CT of the abdomen and pelvis with IV contrast is read by [facility] as "Cholelithiasis associated with choledocholithiasis. Mild enhancement of the wall of the common bile duct. Combination of sonographic and CT findings are worrisome for acute cholecystitis." The patient's a swab for the SARS-CoV-2 virus returned negative. 04/30/20 03:36 Test results discussed with the patient. As above, the patient appears to have acute cholecystitis due to choledocholithiasis. I recommended discussing the case with our Surgeon on-call to see if they would be willing to admit her for a cholecystectomy. The patient agreed. Case then discussed with Dr. Craft at 03:34. He recommended that I start the patient on Zosyn, keep her NPO, give her LR at 100 mL/h, order pain medication, and he will see her in the morning. The Mg-rider has not finished infusing. I will order 40 mEq of oral KCl to be given to the patient with a sip of water once the Mg-rider is in. Departure - Departure Time of Disposition: 03:39 Disposition: Refer to Observation Condition: Good Clinical Impression: Acute cholecystitis due to biliary calculus, Hypokalemia, Hypomagnesemia, Chronic renal insufficiency, Hyperglycemia - Discharge Information *PRESCRIPTION DRUG MONITORING PROGRAM REVIEWED*: Not Applicable *COPY OF PRESCRIPTION DRUG MONITORING REPORT IN PATIENT [place]LA[facility]: Not Applicable Referrals: Antonieta Rolon MD [Primary Care Provider] - Miguel Angel Lowe NP [Ordering Only Provider] - Preston Box DO [Ordering Only Provider] - Forms: ED Department Discharge Sepsis Event Note (ED) - Evaluation Sepsis Screening Result: No Definite Risk - Focused Exam Vital Signs: Vital Signs Temp Pulse Resp BP Pulse Ox 04/29/20 23:12 36.6 C 64 18 156/90 H 100 - My Orders Last 24 Hours: My Active Orders 04/29/20 23:40 Abdomen Pelvis w Cont [CT] Stat 04/30/20 00:15 Abdomen Ltd [US] Stat 04/30/20 03:36 Piperacillin/Tazobactam 4.5 GM - First Dose Piperacillin/Tazobactam [Piperacil- Tazobact] 4.5 gm Sodium Chloride 0.9% [Normal Saline] 100 ml IV ONETIME 04/30/20 03:45 Lactated Ringers @ 100 MLS/HR(1000ml Bag) Lactated Ringers [Ringers, Lactated] 1,000 ml IV ASDIRECTED - Assessment/Plan Last 24 Hours: My Active Orders 04/29/20 23:40 Abdomen Pelvis w Cont [CT] Stat 04/30/20 00:15 Abdomen Ltd [US] Stat 04/30/20 03:36 Piperacillin/Tazobactam 4.5 GM - First Dose Piperacillin/Tazobactam [Piperacil- Tazobact] 4.5 gm Sodium Chloride 0.9% [Normal Saline] 100 ml IV ONETIME 04/30/20 03:45 Lactated Ringers @ 100 MLS/HR(1000ml Bag) Lactated Ringers [Ringers, Lactated] 1,000 ml IV ASDIRECTED
[2020-04-30] MEDS ORDERED: Magnesium Sulfate/Water 2 GM/50 ML Premix Bag IV STA (00:58)
[2020-04-30] MEDS ORDERED: Magnesium Sulfate/Water 2 GM/50 ML BAG IV STA (01:03)
[2020-04-30] MEDS ORDERED: HYDROmorphone 1 MG/ML Syringe IVPUSH ONE ×2 (01:27→03:25)
[2020-04-30] MEDS ORDERED: Ondansetron 4 MG/2 ML SDV IVPUSH ONE (01:27)
[2020-04-30] MEDS ORDERED: Piperacillin/Tazobactam 4.5 GM in Sodium Chloride 0.9% 100 ML IV ONE (03:36)
[2020-04-30] MEDS ORDERED: Lactated Ringers 1,000 ML IV SCH ×2 (03:45→04:45)
[2020-04-30] MEDS ORDERED: Ondansetron 4 MG/2 ML SDV IVPUSH PRN ×2 (04:46→11:21)
[2020-04-30] MEDS ORDERED: Potassium Chloride 20 MEQ Tab.ER PO ONE (04:53)
[2020-04-30] MEDS: HYDROmorphone 1 MG/ML Syringe IVPUSH PRN ×2 (05:36→08:09)
[2020-04-30] MEDS ORDERED: Levothyroxine 25 MCG Tab PO SCH (07:00)
[2020-04-30] MEDS ORDERED: Potassium Chloride 10 MEQ in Premix Bag 1 BAG IV SCH (07:30)
[2020-04-30] MEDS ORDERED: Sodium Chloride 0.9% 1,000 ML IV ONE (07:51)
[2020-04-30] MEDS: Potassium Chloride 10 MEQ in Premix Bag 1 BAG IV SCH ×4 (08:09→15:14)
[2020-04-30] MEDS ORDERED: Albuterol 6.7 GM Inhaler INH PRN (08:15)
--- NOTE | 2020-04-30 08:21 | PCM.HP.2 ---
H&P History of Present Illness - General Date of Service: 04/30/20 Admit Problem/Dx: Admission Diagnosis/Problem Admission Diagnosis/Problem Acute cholecystitis Source of Information: Patient History Limitations: Reports: No Limitations - History of Present Illness Initial Comments - Free Text/Narative: Mrs. Ray is a 54 yo woman presenting with severe abdominal pain for now48 hours. She has not had pain like this before. Work up in the emergency room shows evidence of acute calculous cholecystitis. Her medical history is significant for Timoteo granulomatosis, hypertension, hypothyroidism, morbid obesity and right breast cancer s/p treatment a few years ago. She has not received steroids recently. She has had no prior abdominal operations. Right Abdomen Pain Score (Numeric/FACES): 10 - Related Data Allergies/Adverse Reactions: Allergies Allergy/AdvReac Type Severity Reaction Status Date / Time lisinopril AdvReac Other Verified 04/30/20 04:32 Home Medications: Home Meds Albuterol [Proair HFA] 2 puff INH Q4H PRN 07/23/16 [History] Hydrochlorothiazide 25 mg PO DAILY 07/23/16 [History] Multivitamin [Multivitamins] 1 tab PO DAILY 07/23/16 [History] Omeprazole 20 mg PO DAILY 07/23/16 [History] Potassium Chloride 10 meq PO DAILY 07/23/16 [History] Fluticasone Propion/Salmeterol [Advair 250-50 Diskus] 1 puff INH ASDIRECTED 01/04/17 [History] Levothyroxine 25 mcg PO ASDIRECTED 03/31/18 [History] Levothyroxine [Synthroid] 50 mcg PO ASDIRECTED 03/31/18 [History] Simvastatin [Zocor] 10 mg PO DAILY 03/31/18 [History] Past Medical History HEENT History: Reports: Impaired Vision Other HEENT History: chronic hoarseness, nasal septum perforation, thrush Cardiovascular History: Reports: High Cholesterol, Hypertension Respiratory History: Reports: Asthma, PE, Sleep Apnea Other Respiratory History: uses cpap, has hoarse voice, hx of PE.bronchosocpy Gastrointestinal History: Reports: GERD Other Gastrointestinal History: PPI use, PONV Genitourinary History: Reports: Chronic Renal Insuffiency Other Genitourinary History: Wagners disease; acute 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, chronic kidney disease stage III FLY TIER History: Reports: None Other OB/BYN History: dense breast tissue Musculoskeletal History: Reports: Osteoarthritis Other Musculoskeletal History: lower extremity edema, left total knee replacement Neurological History: Reports: Migraines Psychiatric History: Reports: None Endocrine/Metabolic History: Reports: Obesity/BMI 30+ Other Endocrine/Metabolic History: hair loss Hematologic History: Reports: Polycythemia, Other (See Below) Other Hematologic History: erythrocytosis Immunologic History: Reports: Other (See Below) Other Immunologic History: 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) Oncologic (Cancer) History: Reports: Breast Dermatologic History: Reports: None - Past Surgical History HEENT Surgical History: Reports: Naso-Sinus Surgery GI Surgical History: Reports: Colonoscopy, EGD Musculoskeletal Surgical History: Reports: Knee Replacement Oncologic Surgical History: Reports: Mastectomy Social & Family History - Family History Family Medical History: Noncontributory HEENT: Reports: Cataract GI: Reports: GERD OBGYN: Reports: Endocrine/Metabolic: Reports: Diabetes, type II Other Endocrine/Metabolic Family History: dad Hematologic: Reports: None Dermatologic: Reports: Psoriasis Other Dermatologic Family History: dad Oncologic: Reports: Colon Other Oncologic Family History: mom passed - Tobacco Use Tobacco Use Status *Q: Never Tobacco User - Caffeine Use Caffeine Use: Reports: Coffee Caffeine Use Comment: daily - Recreational Drug Use Recreational Drug Use: No - Living Situation & Occupation Living situation: Reports: , with Spouse Occupation: Unemployed H&P Review of Systems - Review of Systems: Review Of Systems: See Below General: Reports: Malaise HEENT: Reports: No Symptoms Pulmonary: Reports: No Symptoms Cardiovascular: Reports: No Symptoms Gastrointestinal: Reports: Abdominal Pain Genitourinary: Reports: No Symptoms Musculoskeletal: Reports: No Symptoms Skin: Reports: No Symptoms Psychiatric: Reports: No Symptoms Neurological: Reports: No Symptoms Hematologic/Lymphatic: Reports: No Symptoms Immunologic: Reports: No Symptoms Exam - Exam Exam: See Below - Vital Signs Vital Signs: Last Vital Signs Temp 36.6 C 04/29/20 23:12 Pulse 64 04/29/20 23:12 Resp 18 04/29/20 23:12 BP 156/90 H 04/29/20 23:12 Pulse Ox 100 04/29/20 23:12 Weight: 125.101 kg - Exam Quality Assessment: Supplemental Oxygen General: Moderate Distress HEENT: Conjunctiva Clear Neck: Trachea Midline Lungs: Clear to Auscultation, Normal Respiratory Effort Cardiovascular: Regular Rate GI/Abdominal Exam: Tender Skin: Warm, Dry Neuro Extensive - Mental Status: Alert, Oriented x3 Psychiatric: Anxious - Patient Data Lab Results Last 24 hrs: Laboratory Results - last 24 hr 04/30/20 04/30/20 04/30/20 Range/Units 00:07 00:07 01:52 WBC 8.90 (3.98-10.04) K/mm3 RBC 4.59 (3.98-5.22) M/mm3 Hgb 14.5 D (11.2-15.7) gm/dl Hct 42.4 (34.1-44.9) % MCV 92.4 D (79.4-94.8) fl MCH 31.6 (25.6-32.2) pg MCHC 34.2 (32.2-35.5) g/dl RDW Std Deviation 44.4 (36.4-46.3) fL Plt Count 184 (182-369) K/mm3 MPV 11.0 (9.4-12.3) fl Neutrophils % (Manual) 76 H (40-60) % Band Neutrophils % 0 (0-10) % Lymphocytes % (Manual) 17 L (20-40) % Atypical Lymphs % 0 % Monocytes % (Manual) 6 (2-10) % Eosinophils % (Manual) 1 (0.7-5.8) % Basophils % (Manual) 0 L (0.1-1.2) Platelet Estimate Adequate RBC Morph Comment Normal Sodium 139 (136-145) mEq/L Potassium 3.0 L (3.5-5.1) mEq/L Chloride 101 (98-107) mEq/L Carbon Dioxide 23 (21-32) mEq/L Anion Gap 18.0 H (5-15) BUN 28 H (7-18) mg/dL Creatinine 1.9 H (0.55-1.02) mg/dL Est Cr Clr Drug Dosing 33.35 mL/min Estimated GFR (MDRD) 27 (>60) mL/min BUN/Creatinine Ratio 14.7 (14-18) Glucose 147 H (74-106) mg/dL Calcium 9.6 (8.5-10.1) mg/dL Magnesium 1.5 L (1.8-2.4) mg/dl Total Bilirubin 0.7 (0.2-1.0) mg/dL AST 17 (15-37) U/L ALT 27 (14-59) U/L Alkaline Phosphatase 77 (46-116) U/L Total Protein 7.0 (6.4-8.2) g/dl Albumin 3.5 (3.4-5.0) g/dl Globulin 3.5 gm/dL Albumin/Globulin Ratio 1.0 (1-2) Lipase 193 (73-393) U/L SARS-CoV-2 RNA (DENISE) Negative (NEGATIVE) Result Diagrams: 04/30/20 00:07 04/30/20 00:07 Sepsis Event Note - Evaluation Sepsis Screening Result: No Definite Risk - Focused Exam Vital Signs: Vital Signs Temp Pulse Resp BP Pulse Ox 04/29/20 23:12 36.6 C 64 18 156/90 H 100 Problem List Initiated/Reviewed/Updated: Yes Orders Last 24hrs: Active Orders 24 hr Category Date Time Status Patient Status [ADT] Routine ADT 04/30/20 04:06 Active RT Post Treatment Assessment [RC] Click to Edit Care 04/30/20 08:15 Ordered RT Pre-Treatment Assessment [RC] Click to Edit Care 04/30/20 08:15 Ordered Abdomen Ltd [US] Stat Exams 04/30/20 00:15 Taken Abdomen Pelvis w Cont [CT] Stat Exams 04/29/20 23:40 Taken BILIRUBIN DIRECT [CHEM] Routine Lab 04/30/20 08:00 Ordered CMP [COMPREHENSIVE METABOLIC PN,CMP] [CHEM] Routine Lab 04/30/20 08:00 Ordered Albuterol [Proventil HFA] Med 04/30/20 08:15 Ordered 2 puff INH Q4H PRN Fluticasone/Salmeterol Med 04/30/20 08:15 Ordered 1 puff INH ASDIRECTED HYDROmorphone [Dilaudid] Med 04/30/20 04:39 Active 1 mg IVPUSH Q2H PRN Lactated Ringers [Ringers, Lactated] 1,000 ml Med 04/30/20 04:45 Active IV ASDIRECTED Levothyroxine Med 04/30/20 08:15 Ordered 25 mcg PO ASDIRECTED Levothyroxine [Synthroid] Med 04/30/20 08:15 Ordered 50 mcg PO ASDIRECTED Omeprazole Med 04/30/20 09:00 Ordered 20 mg PO DAILY Ondansetron [Zofran] Med 04/30/20 04:46 Active 4 mg IVPUSH Q6H PRN Potassium Chloride [KCl 10 MEQ in Water 100 ML] 10 meq Med 04/30/20 09:00 Active Premix Bag 1 bag IV Q1H Simvastatin [Zocor] Med 04/30/20 09:00 Ordered 10 mg PO DAILY Sodium Chloride 0.9% [Normal Saline] 1,000 ml Med 04/30/20 07:51 Active IV ONETIME Schedule Procedure [COMM] Routine Oth 04/30/20 08:15 Ordered Code Status [Resuscitation Status] Routine Resus Stat 04/30/20 07:23 Ordered Medication Orders Hydromorphone HCl (Dilaudid) 1 mg IVPUSH Q2H PRN PRN Reason: Pain Last Admin: 04/30/20 08:09 Dose: 1 mg Documented by: Admin: 04/30/20 05:36 Dose: 1 mg Documented by: TINY Lactated Ringer's (Ringers, Lactated) 1,000 mls @ 100 mls/hr IV ASDIRECTED [facility] Last Admin: 04/30/20 04:57 Dose: 100 mls/hr Documented by: TINY Potassium Chloride 10 meq/ (Premix) 100 mls @ 100 mls/hr IV Q1H [facility] Stop: 04/30/20 12:59 Last Admin: 04/30/20 08:09 Dose: 100 mls/hr Documented by: DANIELLA Sodium Chloride (Normal Saline) 1,000 mls @ 1,000 mls/hr IV ONETIME ONE Stop: 04/30/20 08:50 Last Admin: 04/30/20 08:09 Dose: 1,000 mls/hr Documented by: DANIELLA Ondansetron HCl (Zofran) 4 mg IVPUSH Q6H PRN PRN Reason: Nausea/Vomiting Last Admin: 04/30/20 04:57 Dose: 4 mg Documented by: TINY Assessment/Plan Comment:: Acute calculous cholecystitis. Plan for repeat labs this morning as there was reportedly some question of choledocholithiasis on the CT scan from last night, though I do not have access to the radiology report and the CT imaging itself is not concerning to me. If bilirubin is normal, plan for laparoscopic cholecystectomy today with plan for discharge to home afterwards if patient is doing well. - Mortality Measure Prognosis:: Good
[2020-04-30] MEDS ORDERED: Magnesium Sulfate/Water 2 GM/50 ML BAG IV ONE (08:30)
[2020-04-30] MEDS ORDERED: Pantoprazole 40 MG Tab.CR PO SCH (09:00)
[2020-04-30] MEDS ORDERED: Formoterol/Mometasone 200-5 MCG 8.8 GM Inhaler IH SCH (09:00)
[2020-04-30] MEDS ORDERED: Simvastatin 10 MG Tab PO SCH (09:00)
[2020-04-30] MEDS ORDERED: Bupivacaine 0.5%/EPINEPHrine 1:200,000 50 ML MDV ONE (09:05)
--- NOTE | 2020-04-30 10:10 | PCM.PREANE ---
Preanesthetic Assessment - Procedure Proposed Procedure: Laparoscopic Cholecystectomy - Anesthesia/Transfusion/Family Hx Anesthesia History: Prior Anesthesia Reaction Other Type of Anesthesia Reaction Comment: patient states she receives scopalamine patch prior to receiving anesthesia Family History of Anesthesia Reaction: No Transfusion History: Prior Transfusion Without Reaction Intubation History: Unknown - Review of Systems General: No Symptoms (Intense Pain 10/10 abdomen, receiving IV dilaudid, last dose at 0800. ) Pulmonary: No Symptoms (History of Asthma, Controlled, Rare use of rescue inhaler. Denies SOB. Inhalers given at 0945 by respiratory therapy. ) Cardiovascular: No Symptoms Gastrointestinal: Abdominal Pain, Nausea (Ondansetron IV given at 0800. ), Other (GERD) Neurological: No Symptoms Other: Reports: None (Obesity, BMI 41.9. Wegeners Granulomatosis, follows with rhumatology at [facility]. No steroid use in the last 6 months. Stage III CKD GFR 31 Creatinine at 1.7 this morning. ) - Physical Assessment NPO Status Date: 04/29/20 NPO Status Time: 18:00 Vital Signs: Last Vital Signs Temp 36.7 C 04/30/20 08:24 Pulse 64 04/29/20 23:12 Resp 19 04/30/20 08:24 BP 126/80 04/30/20 08:24 Pulse Ox 96 04/30/20 09:46 Height: 1.73 m Weight: 125.101 kg ASA Class: 3 Mental Status: Alert & Oriented x3 Airway Class: Mallampati = 3 Dentition: Reports: Normal Dentition Thyro-Mental Finger Breadths: 2 Mouth Opening Finger Breadths: 3 ROM/Head Extension: Full Lungs: Clear to Auscultation, Normal Respiratory Effort Cardiovascular: Regular Rate, Regular Rhythm - Lab Values: Laboratory Last Values WBC 8.90 K/mm3 (3.98-10.04) 04/30/20 00:07 RBC 4.59 M/mm3 (3.98-5.22) 04/30/20 00:07 Hgb 14.5 gm/dl (11.2-15.7) D 04/30/20 00:07 Hct 42.4 % (34.1-44.9) 04/30/20 00:07 MCV 92.4 fl (79.4-94.8) D 04/30/20 00:07 MCH 31.6 pg (25.6-32.2) 04/30/20 00:07 MCHC 34.2 g/dl (32.2-35.5) 04/30/20 00:07 RDW Std Deviation 44.4 fL (36.4-46.3) 04/30/20 00:07 Plt Count 184 K/mm3 (182-369) 04/30/20 00:07 MPV 11.0 fl (9.4-12.3) 04/30/20 00:07 Neutrophils % (Manual) 76 % (40-60) H 04/30/20 00:07 Band Neutrophils % 0 % (0-10) 04/30/20 00:07 Lymphocytes % (Manual) 17 % (20-40) L 04/30/20 00:07 Atypical Lymphs % 0 % 04/30/20 00:07 Monocytes % (Manual) 6 % (2-10) 04/30/20 00:07 Eosinophils % (Manual) 1 % (0.7-5.8) 04/30/20 00:07 Basophils % (Manual) 0 (0.1-1.2) L 04/30/20 00:07 Platelet Estimate Adequate 04/30/20 00:07 RBC Morph Comment Normal 04/30/20 00:07 Sodium 140 mEq/L (136-145) 04/30/20 08:15 Potassium 3.2 mEq/L (3.5-5.1) L 04/30/20 08:15 Chloride 101 mEq/L (98-107) 04/30/20 08:15 Carbon Dioxide 25 mEq/L (21-32) 04/30/20 08:15 Anion Gap 17.2 (5-15) H 04/30/20 08:15 BUN 25 mg/dL (7-18) H 04/30/20 08:15 Creatinine 1.7 mg/dL (0.55-1.02) H 04/30/20 08:15 Est Cr Clr Drug Dosing 37.27 mL/min 04/30/20 08:15 Estimated GFR (MDRD) 31 mL/min (>60) 04/30/20 08:15 BUN/Creatinine Ratio 14.7 (14-18) 04/30/20 08:15 Glucose 163 mg/dL (74-106) H 04/30/20 08:15 Calcium 9.9 mg/dL (8.5-10.1) 04/30/20 08:15 Magnesium 1.5 mg/dl (1.8-2.4) L 04/30/20 00:07 Total Bilirubin 0.8 mg/dL (0.2-1.0) 04/30/20 08:15 Direct Bilirubin 0.20 mg/dl (0.0-0.2) 04/30/20 08:15 AST 24 U/L (15-37) 04/30/20 08:15 ALT 32 U/L (14-59) 04/30/20 08:15 Alkaline Phosphatase 81 U/L (46-116) 04/30/20 08:15 Total Protein 7.3 g/dl (6.4-8.2) 04/30/20 08:15 Albumin 3.6 g/dl (3.4-5.0) 04/30/20 08:15 Globulin 3.7 gm/dL 04/30/20 08:15 Albumin/Globulin Ratio 1.0 (1-2) 04/30/20 08:15 Lipase 193 U/L (73-393) 04/30/20 00:07 SARS-CoV-2 RNA (DENISE) Negative (NEGATIVE) 04/30/20 01:52 Hypokalemia improving since admission, continued replacement. - Allergies Allergies/Adverse Reactions: Allergies Allergy/AdvReac Type Severity Reaction Status Date / Time lisinopril AdvReac Other Verified 04/30/20 04:32 - Anesthesia Plan Pre-Op Medication Ordered: Other (Scopalamine Patch ) - Acknowledgements Anesthesia Type Planned: General Anesthesia Pt an Appropriate Candidate for the Planned Anesthesia: Yes Alternatives and Risks of Anesthesia Discussed w Pt/Guardian: Yes Pt/Guardian Understands and Agrees with Anesthesia Plan: Yes PreAnesthesia Questionnaire HEENT History: Reports: Impaired Vision Other HEENT History: chronic hoarseness, nasal septum perforation, thrush Cardiovascular History: Reports: High Cholesterol, Hypertension Respiratory History: Reports: Asthma, PE, Sleep Apnea Other Respiratory History: uses cpap, has hoarse voice, hx of PE.bronchosocpy Gastrointestinal History: Reports: GERD Other Gastrointestinal History: PPI use, PONV Genitourinary History: Reports: Chronic Renal Insuffiency Other Genitourinary History: Wagners disease; acute 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, chronic kidney disease stage III ORDER PACKER OR PACKAGER History: Reports: None Other OB/BYN History: dense breast tissue Musculoskeletal History: Reports: Osteoarthritis Other Musculoskeletal History: lower extremity edema, left total knee replacement Neurological History: Reports: Migraines Psychiatric History: Reports: None Endocrine/Metabolic History: Reports: Obesity/BMI 30+ Other Endocrine/Metabolic History: hair loss Hematologic History: Reports: Polycythemia, Other (See Below) Other Hematologic History: erythrocytosis Immunologic History: Reports: Other (See Below) Other Immunologic History: 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) Oncologic (Cancer) History: Reports: Breast Dermatologic History: Reports: None - Past Surgical History HEENT Surgical History: Reports: Naso-Sinus Surgery GI Surgical History: Reports: Colonoscopy, EGD Musculoskeletal Surgical History: Reports: Knee Replacement Oncologic Surgical History: Reports: Mastectomy - SUBSTANCE USE Tobacco Use Status *Q: Never Tobacco User Recreational Drug Use History: No - HOME MEDS Home Medications: Home Meds Albuterol [Proair HFA] 2 puff INH Q4H PRN 07/23/16 [History] Hydrochlorothiazide 25 mg PO DAILY 07/23/16 [History] Multivitamin [Multivitamins] 1 tab PO DAILY 07/23/16 [History] Omeprazole 20 mg PO DAILY 07/23/16 [History] Potassium Chloride 10 meq PO DAILY 07/23/16 [History] Fluticasone Propion/Salmeterol [Advair 250-50 Diskus] 1 puff INH ASDIRECTED 01/04/17 [History] Levothyroxine 25 mcg PO ASDIRECTED 03/31/18 [History] Levothyroxine [Synthroid] 50 mcg PO ASDIRECTED 03/31/18 [History] Simvastatin [Zocor] 10 mg PO DAILY 03/31/18 [History] - CURRENT (IN HOUSE) MEDS Current Meds: Current Medications Albuterol (Proventil Hfa) 0 gm INH Q4H PRN PRN Reason: Shortness of Breath Last Admin: 04/30/20 09:45 Dose: 2 puff Documented by: Hydromorphone HCl (Dilaudid) 1 mg IVPUSH Q2H PRN PRN Reason: Pain Last Admin: 04/30/20 08:09 Dose: 1 mg Documented by: Lactated Ringer's (Ringers, Lactated) 1,000 mls @ 100 mls/hr IV ASDIRECTED [facility] Last Admin: 04/30/20 04:57 Dose: 100 mls/hr Documented by: Potassium Chloride 10 meq/ (Premix) 100 mls @ 100 mls/hr IV Q1H [facility] Stop: 04/30/20 12:59 Last Admin: 04/30/20 09:35 Dose: 100 mls/hr Documented by: Levothyroxine Sodium (Levothyroxine) 25 mcg PO [id number] [facility] Last Admin: 04/30/20 08:50 Dose: Not Given Documented by: Levothyroxine Sodium (Synthroid) 50 mcg PO MoFr [facility] Mometasone Furoate/Formoterol Fumar (Dulera 200-5 Mcg) 0 puff IH BID [facility] Last Admin: 04/30/20 09:45 Dose: 2 puff Documented by: Ondansetron HCl (Zofran) 4 mg IVPUSH Q6H PRN PRN Reason: Nausea/Vomiting Last Admin: 04/30/20 04:57 Dose: 4 mg Documented by: Pantoprazole Sodium (Protonix) 40 mg PO DAILY [facility] Last Admin: 04/30/20 08:50 Dose: Not Given Documented by: Simvastatin (Zocor) 10 mg PO DAILY [facility] Last Admin: 04/30/20 08:50 Dose: Not Given Documented by: Discontinued Medications Bupivacaine HCl/Epinephrine Bitart (Marcaine 0.5%/Epinephrine 1:200,000) Confirm Administered Dose 50 ml .ROUTE .STK-MED ONE Stop: 04/30/20 09:06 Hydromorphone HCl (Dilaudid) 1 mg IVPUSH ONETIME STA Stop: 04/29/20 23:41 Last Admin: 04/29/20 23:52 Dose: 1 mg Documented by: Hydromorphone HCl (Dilaudid) 1 mg IVPUSH ONETIME ONE Stop: 04/30/20 01:28 Last Admin: 04/30/20 01:39 Dose: 1 mg Documented by: Hydromorphone HCl (Dilaudid) 1 mg IVPUSH ONETIME ONE Stop: 04/30/20 03:26 Last Admin: 04/30/20 03:32 Dose: 1 mg Documented by: Sodium Chloride (Normal Saline) 1,000 mls @ 150 mls/hr IV ASDIRECTED [facility] Last Admin: 04/29/20 23:52 Dose: 150 mls/hr Documented by: Magnesium Sulfate (Magnesium Sulfate In Water Premix) 2 gm in 50 mls @ 25 mls/hr IV ONETIME STA Stop: 04/30/20 03:02 Last Admin: 04/30/20 01:17 Dose: 25 mls/hr Documented by: Piperacillin Sod/Tazobactam (Sod 4.5 gm/ Sodium Chloride) 100 mls @ 200 mls/hr IV ONETIME ONE Stop: 04/30/20 04:05 Last Admin: 04/30/20 03:51 Dose: 200 mls/hr Documented by: Lactated Ringer's (Ringers, Lactated) 1,000 mls @ 100 mls/hr IV ASDIRECTED [facility] Potassium Chloride 10 meq/ (Premix) 100 mls @ 100 mls/hr IV Q1H [facility] Stop: 04/30/20 11:29 Sodium Chloride (Normal Saline) 1,000 mls @ 1,000 mls/hr IV ONETIME ONE Stop: 04/30/20 08:50 Last Admin: 04/30/20 08:09 Dose: 1,000 mls/hr Documented by: Magnesium Sulfate (Magnesium Sulfate In Water Premix) 2 gm in 50 mls @ 25 mls/hr IV ONETIME ONE Stop: 04/30/20 10:29 Last Admin: 04/30/20 08:10 Dose: Not Given Documented by: Ondansetron HCl (Zofran) 4 mg IVPUSH ONETIME ONE Stop: 04/29/20 23:41 Last Admin: 04/29/20 23:52 Dose: 4 mg Documented by: Ondansetron HCl (Zofran) 4 mg IVPUSH ONETIME ONE Stop: 04/30/20 01:28 Last Admin: 04/30/20 01:39 Dose: 4 mg Documented by: Potassium Chloride (Klor-Con M20) 40 meq PO ONETIME ONE Stop: 04/30/20 04:54 Last Admin: 04/30/20 07:20 Dose: Not Given Documented by:
--- NOTE | 2020-04-30 10:19 | CT ---
"PROCEDURE INFORMATION: Exam: CT Abdomen And Pelvis With Contrast Exam date and time: 04/30/2020 3:07 AM Age: 54 years old Clinical indication: Abdominal pain; Localized; Right upper quadrant (ruq); Patient HX: Right upper quadrant pain TECHNIQUE: Imaging protocol: Computed tomography of the abdomen and pelvis with intravenous contrast. Radiation optimization: All CT scans at this facility use at least one of these dose optimization techniques: automated exposure control; mA and/or kV adjustment per patient size (includes targeted exams where dose is matched to clinical indication); or iterative reconstruction. COMPARISON: Abdomen Ltd 04/30/2020 12:23 AM FINDINGS: Lungs: Included lung bases are clear. Liver: Normal. No mass. Gallbladder and bile ducts: Layering calcified gallstones. There is a 4.0 mm calculus associated with the common bile duct. Common bile duct proximal to the stone measures 7.0 mm. There is curvilinear enhancement of the ductal wall in the michael. Pancreas: Negative for pancreatic ductal dilatation. Spleen: Normal. No splenomegaly. Adrenal glands: Normal. No mass. Kidneys and ureters: Normal. No hydronephrosis. Stomach and bowel: Diverticulosis without diverticulitis. Appendix: No evidence of appendicitis. Intraperitoneal space: Unremarkable. No free air. No significant fluid collection. Vasculature: Multiple pelvic phleboliths. Lymph nodes: Unremarkable. No enlarged lymph nodes. Urinary bladder: Unremarkable as visualized. MINA PRITCHARD | Final Radiology Report CONFIDENTIALITY STATEMENT This report is intended only for use by the referring physician, and only in accordance with law. If you received this in error, call [phone]. Page 2 of 2 Reproductive: Unremarkable as visualized. Bones/joints: No acute osseous findings. Soft tissues: Unremarkable. IMPRESSION: Cholelithiasis associated with choledocholithiasis. Mild enhancement of the wall of the common bile duct. Combination of sonographic and CT findings are worrisome for acute cholecystitis. Thank you for allowing us to participate in the care of your patient. Dictated and Authenticated by: Lisette Vides MD 04/30/2020 4:07 AM Central Time ([place] & [place]) LESLIE"
--- NOTE | 2020-04-30 10:20 | US ---
"PROCEDURE INFORMATION: Exam: US Abdomen, Limited; Right Upper Quadrant Exam date and time: 04/30/2020 12:23 AM Age: 54 years old Clinical indication: Abdominal pain; Acute TECHNIQUE: Imaging protocol: US abdomen. Real time ultrasound with image documentation. Limited exam focused on the right upper quadrant. COMPARISON: No relevant prior studies available. FINDINGS: Limitations: Large body habitus and limited acoustic window. Patient having difficulty to comply with positioning. Liver: Limited assessment of the liver due to limited intercostal acoustic window. As visualized unremarkable. Gallbladder: Gallbladder filled with sludge and debris. Patient unable to comply with decubitus positioning. As visualized no gallstones are demonstrated. Mild thickening of the gallbladder wall at 4.1 mm. There is tenderness elicited over the gallbladder fossa during scanning, constituting a positive sonographic Block sign. Common bile duct: Common bile duct is normal in caliber at 2.8 mm. Pancreas: Partially visualized pancreatic head and neck demonstrates normal echogenicity. Right kidney: Partially visualized right kidney measures 10.0 cm longitudinally. IMPRESSION: 1. Study limited by combination body habitus and difficulty with patient positioning. 2. Gallbladder filled with luminal sludge associated with mild gallbladder wall thickening and positive sonographic Block's sign. 3. No detected gallstones or biliary distention. Thank you for allowing us to participate in the care of your patient. MINA PRITCHARD | Final Radiology Report CONFIDENTIALITY STATEMENT This report is intended only for use by the referring physician, and only in accordance with law. If you received this in error, call [phone]. Page 2 of 2 Dictated and Authenticated by: Lisette Vides MD 04/30/2020 2:16 AM Central Time ([place] & [place]) LESLIE"
[2020-04-30] MEDS ORDERED: Ondansetron 4 MG/2 ML SDV ONE (10:33)
[2020-04-30] MEDS ORDERED: HYDROmorphone 0.5 MG/0.5 ML Syringe ONE ×2 (10:33→11:45)
[2020-04-30] MEDS ORDERED: Rocuronium 50 MG/5 ML Vial ONE (10:33)
[2020-04-30] MEDS ORDERED: Lidocaine 1% 4 ML ONE (10:33)
[2020-04-30] MEDS ORDERED: Dexamethasone 4 MG/ML 5 ML MDV ONE (10:33)
[2020-04-30] MEDS ORDERED: Propofol 200 MG/20 ML SDV ONE (10:33)
[2020-04-30] MEDS ORDERED: Lactated Ringers 2,000 ML ONE (10:33)
[2020-04-30] MEDS ORDERED: Midazolam 1 MG/ML 2 ML SDV ONE (10:34)
[2020-04-30] MEDS ORDERED: fentaNYL 250 MCG/5 ML SDV ONE (10:34)
[2020-04-30] MEDS ORDERED: ceFAZolin 2 GM in Premix Bag 1 BAG IV ONE (10:35)
[2020-04-30] MEDS ORDERED: ceFAZolin 1 GM in Premix Bag 1 BAG IV ONE (10:35)
[2020-04-30] MEDS ORDERED: ceFAZolin 1 GM Vial ONE ×2 (10:36)
[2020-04-30] MEDS ORDERED: Scopolamine 1.5 MG Transdermal Patch TOP ONE (11:00)
[2020-04-30] MEDS ORDERED: fentaNYL 100 MCG/2 ML SDV IVPUSH PRN (11:21)
[2020-04-30] MEDS ORDERED: ePHEDrine 50 MG/ML SDV IVPUSH PRN (11:21)
[2020-04-30] MEDS ORDERED: Metoclopramide 10 MG/2 ML SDV IV PRN (11:21)
[2020-04-30] MEDS ORDERED: diphenhydrAMINE 50 MG/ML SDV IVPUSH PRN (11:21)
[2020-04-30] MEDS ORDERED: Albuterol 0.083% 2.5 MG/3 ML Neb Soln NEB PRN (11:22)
[2020-04-30] MEDS ORDERED: HYDROmorphone 0.5 MG/0.5 ML Syringe IVPUSH PRN (11:22)
--- NOTE | 2020-04-30 12:31 | PCM.PRNOTE ---
- Free Text/Narrative Note: Operative Report Operation: laparoscopic cholecystectomy Date: 04/30/2020 Attending Surgeon: Justin Craft MD Indication for Surgery: acute cholecystitis Preoperative antibiotics: 3 g Ancef IV VTE prophylaxis: SCDs Estimated Blood Loss: 50 cc Findings: acutely inflamed gallbladder. Critical view obtained. A posterior vascular branch was identified and clipped as well. Hemostasis was satisfactory at the end of the case, but a piece of surgicel was placed in the gallbladder fossa. Detailed Report: The patient underwent general endotracheal anesthesia after being placed supine on the operating table. Time out was performed, confirming the patients identity and the operation to be performed. The abdomen was prepped and draped in sterile fashion. A Veress needle was inserted into the abdominal cavity below the left costal margin along the mid-clavicular line. The abdomen was insufflated with CO2 to 15 mm Hg. Gas was aspirated below the umbilicus with a syringe in order to ensure safe placement of a 5 mm bladed laparoscopic port. The 5mm 30 degree laparoscope was then inserted and viscera inspected. Two additional 5 mm ports were placed along the right subcostal region under direct vision with the laparoscope. The gallbladder was severely inflamed and edematous. The gallbladder fundus was grasped and retracted cephalad. An additional 12 mm port was placed in the subxiphoid area. The gallbladder infundibulum was grasped with the surgeons left hand grasper and retracted laterally. The hook electrode was used to open the overlying peritoneum, and this plane of dissection was developed along the edges of the gallbladder at its interface with the liver. Dissection was performed with a combination of the hook electrode, suction braid maker and [place] grasper, carefully exposing and skeletonizing the cystic duct and artery. A critical view of safety was obtained. Hemolock clips were then placed on both structures. The duct and artery were transected with laparoscopic scissors between the hemolock clips. The hook was then used to dissect the gallbladder free from its attachment to the liver. A posterior vascular branch was clipped and cut. The specimen was then placed in an Endocatch bag and removed through the subxiphoid port. The raw liver edge was bleeding and meticulous targeted monopolar energy was applied to sites of hemorrhage. The dissection field was irrigated and suctioned, and a piece of Surgicel was placed in the gallbladder fossa. Omentum was tucked up into the dissection field. The larger subxiphoid port was closed at the level of the fascia with vicryl suture using the PMI laparoscopic suture passer. Pneumoperitoneum was then released. All skin incisions were then closed with placement of subcuticular vicryl suture and dressed with dermabond. A total of 40 cc 0.5% marcaine with epinephrine was used for local anesthesia at the incision sites. The patient tolerated the operation well, was extubated in the operating room and transferred to the PACU for routine post-anesthesia care.
[2020-04-30] MEDS ORDERED: oxyCODONE 5 MG Tab PO PRN (12:34)
--- NOTE | 2020-04-30 12:34 | PCM.POSTAN ---
POST ANESTHESIA ASSESSMENT - MENTAL STATUS Mental Status: Alert - VITAL SIGNS Vital Signs: Last Vital Signs Temp 98.7 04/30/20 1222 Pulse 83 04/29/20 1222 Resp 12 04/30/20 1222 BP 150/59 04/30/20 1222 Pulse Ox 94% 04/30/20 1222 - RESPIRATORY Respiratory Status: Respiratory Rate WNL, Airway Patent, O2 Saturation Stable, Supplemental Oxygen - CARDIOVASCULAR CV Status: Pulse Rate WNL, Blood Pressure Stable - GASTROINTESTINAL GI Status: No Symptoms - POST OP HYDRATION Hydration Status: Adequate & Stable
--- NOTE | 2020-04-30 12:37 | PCM.DCSUM1 ---
Discharge Summary - Hospital Course Free Text/Narrative:: Admitted through the ER on 04/30/2020 with findings of acute cholecystitis. Underwent routine laparoscopic cholecystectomy without complication. Diagnosis: Stroke: No - Discharge Data Discharge Date: 04/30/20 Discharge Disposition: Home, Self-Care 01 Condition: Good - Referral to Home Health Primary Care Physician: Antonieta Rolon MD - Patient Summary/Data Operative Procedure(s) Performed: laparoscopic cholecystectomy - Patient Instructions Diet: Usual Diet as Tolerated Activity: As Tolerated, No Lifting Over 10 Pounds Showering/Bathing: May Shower, No Tub Bathing/Swimming Wound/Incision Care: Keep Operative Site/Wound Site Clean and Dry Notify Provider of: Fever, Increased Pain, Swelling and Redness, Drainage, Nausea and/or Vomiting - Discharge Plan *PRESCRIPTION DRUG MONITORING PROGRAM REVIEWED*: Not Applicable *COPY OF PRESCRIPTION DRUG MONITORING REPORT IN PATIENT [place]LA[facility]: Not Applicable Prescriptions/Med Rec: oxyCODONE 5 mg PO Q4H PRN #20 tab PRN Reason: Pain Home Medications: Home Meds Albuterol [Proair HFA] 2 puff INH Q4H PRN 07/23/16 [History] Hydrochlorothiazide 25 mg PO DAILY 07/23/16 [History] Multivitamin [Multivitamins] 1 tab PO DAILY 07/23/16 [History] Omeprazole 20 mg PO DAILY 07/23/16 [History] Potassium Chloride 10 meq PO DAILY 07/23/16 [History] Fluticasone Propion/Salmeterol [Advair 250-50 Diskus] 1 puff INH ASDIRECTED 01/04/17 [History] Levothyroxine 25 mcg PO ASDIRECTED 03/31/18 [History] Levothyroxine [Synthroid] 50 mcg PO ASDIRECTED 03/31/18 [History] Simvastatin [Zocor] 10 mg PO DAILY 03/31/18 [History] oxyCODONE 5 mg PO Q4H PRN #20 tab 04/30/20 [Rx] Oxygen Therapy Mode: Room Air Patient Handouts: Type 2 Diabetes Mellitus, Diagnosis, Adult Forms: ED Department Discharge Referrals: Antonieta Rolon MD [Primary Care Provider] - Preston Box DO [Ordering Only Provider] - Miguel Angel Lowe NP [Ordering Only Provider] - - Discharge Summary/Plan Comment DC Time >30 min.: No - Patient Data Vitals - Most Recent: Last Vital Signs Temp 36.7 C 04/30/20 08:24 Pulse 64 04/29/20 23:12 Resp 19 04/30/20 08:24 BP 126/80 04/30/20 08:24 Pulse Ox 96 04/30/20 09:46 Weight - Most Recent: 125.101 kg Lab Results - Last 24 hrs: Laboratory Results - last 24 hr 04/30/20 04/30/20 04/30/20 Range/Units 00:07 00:07 01:52 WBC 8.90 (3.98-10.04) K/mm3 RBC 4.59 (3.98-5.22) M/mm3 Hgb 14.5 D (11.2-15.7) gm/dl Hct 42.4 (34.1-44.9) % MCV 92.4 D (79.4-94.8) fl MCH 31.6 (25.6-32.2) pg MCHC 34.2 (32.2-35.5) g/dl RDW Std Deviation 44.4 (36.4-46.3) fL Plt Count 184 (182-369) K/mm3 MPV 11.0 (9.4-12.3) fl Neutrophils % (Manual) 76 H (40-60) % Band Neutrophils % 0 (0-10) % Lymphocytes % (Manual) 17 L (20-40) % Atypical Lymphs % 0 % Monocytes % (Manual) 6 (2-10) % Eosinophils % (Manual) 1 (0.7-5.8) % Basophils % (Manual) 0 L (0.1-1.2) Platelet Estimate Adequate RBC Morph Comment Normal Sodium 139 (136-145) mEq/L Potassium 3.0 L (3.5-5.1) mEq/L Chloride 101 (98-107) mEq/L Carbon Dioxide 23 (21-32) mEq/L Anion Gap 18.0 H (5-15) BUN 28 H (7-18) mg/dL Creatinine 1.9 H (0.55-1.02) mg/dL Est Cr Clr Drug Dosing 33.35 mL/min Estimated GFR (MDRD) 27 (>60) mL/min BUN/Creatinine Ratio 14.7 (14-18) Glucose 147 H (74-106) mg/dL Calcium 9.6 (8.5-10.1) mg/dL Magnesium 1.5 L (1.8-2.4) mg/dl Total Bilirubin 0.7 (0.2-1.0) mg/dL Direct Bilirubin (0.0-0.2) mg/dl AST 17 (15-37) U/L ALT 27 (14-59) U/L Alkaline Phosphatase 77 (46-116) U/L Total Protein 7.0 (6.4-8.2) g/dl Albumin 3.5 (3.4-5.0) g/dl Globulin 3.5 gm/dL Albumin/Globulin Ratio 1.0 (1-2) Lipase 193 (73-393) U/L SARS-CoV-2 RNA (DENISE) Negative (NEGATIVE) 04/30/20 Range/Units 08:15 WBC (3.98-10.04) K/mm3 RBC (3.98-5.22) M/mm3 Hgb (11.2-15.7) gm/dl Hct (34.1-44.9) % MCV (79.4-94.8) fl MCH (25.6-32.2) pg MCHC (32.2-35.5) g/dl RDW Std Deviation (36.4-46.3) fL Plt Count (182-369) K/mm3 MPV (9.4-12.3) fl Neutrophils % (Manual) (40-60) % Band Neutrophils % (0-10) % Lymphocytes % (Manual) (20-40) % Atypical Lymphs % % Monocytes % (Manual) (2-10) % Eosinophils % (Manual) (0.7-5.8) % Basophils % (Manual) (0.1-1.2) Platelet Estimate RBC Morph Comment Sodium 140 (136-145) mEq/L Potassium 3.2 L (3.5-5.1) mEq/L Chloride 101 (98-107) mEq/L Carbon Dioxide 25 (21-32) mEq/L Anion Gap 17.2 H (5-15) BUN 25 H (7-18) mg/dL Creatinine 1.7 H (0.55-1.02) mg/dL Est Cr Clr Drug Dosing 37.27 mL/min Estimated GFR (MDRD) 31 (>60) mL/min BUN/Creatinine Ratio 14.7 (14-18) Glucose 163 H (74-106) mg/dL Calcium 9.9 (8.5-10.1) mg/dL Magnesium (1.8-2.4) mg/dl Total Bilirubin 0.8 (0.2-1.0) mg/dL Direct Bilirubin 0.20 (0.0-0.2) mg/dl AST 24 (15-37) U/L ALT 32 (14-59) U/L Alkaline Phosphatase 81 (46-116) U/L Total Protein 7.3 (6.4-8.2) g/dl Albumin 3.6 (3.4-5.0) g/dl Globulin 3.7 gm/dL Albumin/Globulin Ratio 1.0 (1-2) Lipase (73-393) U/L SARS-CoV-2 RNA (DENISE) (NEGATIVE) Med Orders - Current: Current Medications Albuterol (Proventil Hfa) 0 gm INH Q4H PRN PRN Reason: Shortness of Breath Last Admin: 04/30/20 09:45 Dose: 2 puff Documented by: Albuterol (Proventil Neb Soln) 2.5 mg NEB ONETIME PRN PRN Reason: bronchodilation Stop: 04/30/20 18:00 Diphenhydramine HCl (Benadryl) 25 mg IVPUSH Q6H PRN PRN Reason: pruritis Stop: 04/30/20 18:00 Ephedrine Sulfate (Ephedrine Sulfate) 5 mg IVPUSH ASDIRECTED PRN PRN Reason: Hypotension Stop: 04/30/20 18:00 Fentanyl (Sublimaze) 50 mcg IVPUSH Q5M PRN PRN Reason: Pain Stop: 04/30/20 18:00 Hydromorphone HCl (Dilaudid) 0.5 mg IVPUSH ONETIME PRN PRN Reason: Pain Stop: 04/30/20 18:00 Potassium Chloride 10 meq/ (Premix) 100 mls @ 100 mls/hr IV Q1H ASHU Stop: 04/30/20 12:59 Last Admin: 04/30/20 09:35 Dose: 100 mls/hr Documented by: Levothyroxine Sodium (Levothyroxine) 25 mcg PO SuTuWeThSa [facility] Last Admin: 04/30/20 08:50 Dose: Not Given Documented by: Levothyroxine Sodium (Synthroid) 50 mcg PO [facility] Metoclopramide HCl (Reglan) 10 mg IV ONETIME PRN PRN Reason: Nausea/Vomiting Stop: 04/30/20 18:00 Miscellaneous Information (Remove Patch) 1 ea TRDERM ONETIME ONE Stop: 05/03/20 11:01 Mometasone Furoate/Formoterol Fumar (Dulera 200-5 Mcg) 0 puff IH BID [facility] Last Admin: 04/30/20 09:45 Dose: 2 puff Documented by: Ondansetron HCl (Zofran) 4 mg IVPUSH Q6H PRN PRN Reason: Nausea/Vomiting Last Admin: 04/30/20 04:57 Dose: 4 mg Documented by: Ondansetron HCl (Zofran) 4 mg IVPUSH ONETIME PRN PRN Reason: Nausea/Vomiting Stop: 04/30/20 18:00 Oxycodone HCl (Oxycodone) 5 mg PO Q4H PRN PRN Reason: Pain (moderate 4-6) Pantoprazole Sodium (Protonix) 40 mg PO DAILY [facility] Last Admin: 04/30/20 08:50 Dose: Not Given Documented by: Simvastatin (Zocor) 10 mg PO DAILY [facility] Last Admin: 04/30/20 08:50 Dose: Not Given Documented by: Discontinued Medications Bupivacaine HCl/Epinephrine Bitart (Marcaine 0.5%/Epinephrine 1:200,000) Confirm Administered Dose 50 ml .ROUTE .STK-MED ONE Stop: 04/30/20 09:06 Last Admin: 04/30/20 11:14 Dose: 30 ml Documented by: Cefazolin Sodium (Ancef) Confirm Administered Dose 1 gm .ROUTE .STK-MED ONE Stop: 04/30/20 10:37 Cefazolin Sodium (Ancef) Confirm Administered Dose 2 gm .ROUTE .STK-MED ONE Stop: 04/30/20 10:37 Dexamethasone (Dexamethasone) Confirm Administered Dose 20 mg .ROUTE .STK-MED ONE Stop: 04/30/20 10:34 Fentanyl (Sublimaze) Confirm Administered Dose 250 mcg .ROUTE .STK-MED ONE Stop: 04/30/20 10:35 Glycopyrrolate (Robinul) Confirm Administered Dose 1.2 mg .ROUTE .STK-MED ONE Stop: 04/30/20 11:30 Hydromorphone HCl (Dilaudid) 1 mg IVPUSH ONETIME STA Stop: 04/29/20 23:41 Last Admin: 04/29/20 23:52 Dose: 1 mg Documented by: Hydromorphone HCl (Dilaudid) 1 mg IVPUSH ONETIME ONE Stop: 04/30/20 01:28 Last Admin: 04/30/20 01:39 Dose: 1 mg Documented by: Hydromorphone HCl (Dilaudid) 1 mg IVPUSH ONETIME ONE Stop: 04/30/20 03:26 Last Admin: 04/30/20 03:32 Dose: 1 mg Documented by: Hydromorphone HCl (Dilaudid) 1 mg IVPUSH Q2H PRN PRN Reason: Pain Last Admin: 04/30/20 08:09 Dose: 1 mg Documented by: Hydromorphone HCl (Dilaudid) Confirm Administered Dose 0.5 mg .ROUTE .STK-MED ONE Stop: 04/30/20 10:34 Hydromorphone HCl (Dilaudid) Confirm Administered Dose 0.5 mg .ROUTE .STK-MED ONE Stop: 04/30/20 11:46 Sodium Chloride (Normal Saline) 1,000 mls @ 150 mls/hr IV ASDIRECTED ASHU Last Admin: 04/29/20 23:52 Dose: 150 mls/hr Documented by: Magnesium Sulfate (Magnesium Sulfate In Water Premix) 2 gm in 50 mls @ 25 mls/hr IV ONETIME STA Stop: 04/30/20 03:02 Last Admin: 04/30/20 01:17 Dose: 25 mls/hr Documented by: Piperacillin Sod/Tazobactam (Sod 4.5 gm/ Sodium Chloride) 100 mls @ 200 mls/hr IV ONETIME ONE Stop: 04/30/20 04:05 Last Admin: 04/30/20 03:51 Dose: 200 mls/hr Documented by: Lactated Ringer's (Ringers, Lactated) 1,000 mls @ 100 mls/hr IV ASDIRECTED ASHU Lactated Ringer's (Ringers, Lactated) 1,000 mls @ 100 mls/hr IV ASDIRECTED [facility] Last Admin: 04/30/20 04:57 Dose: 100 mls/hr Documented by: Potassium Chloride 10 meq/ (Premix) 100 mls @ 100 mls/hr IV Q1H ASHU Stop: 04/30/20 11:29 Sodium Chloride (Normal Saline) 1,000 mls @ 1,000 mls/hr IV ONETIME ONE Stop: 04/30/20 08:50 Last Admin: 04/30/20 08:09 Dose: 1,000 mls/hr Documented by: Magnesium Sulfate (Magnesium Sulfate In Water Premix) 2 gm in 50 mls @ 25 mls/hr IV ONETIME ONE Stop: 04/30/20 10:29 Last Admin: 04/30/20 08:10 Dose: Not Given Documented by: Cefazolin Sodium/Dextrose 2 gm (/ Premix) 50 mls @ 66.667 mls/hr IV ONETIME ONE Stop: 04/30/20 11:19 Lidocaine HCl (Xylocaine-Mpf 1%) Confirm Administered Dose 4 mls @ as directed .ROUTE .STK-MED ONE Stop: 04/30/20 10:34 Lactated Ringer's (Ringers, Lactated) Confirm Administered Dose 2,000 mls @ as directed .ROUTE .STK-MED ONE Stop: 04/30/20 10:34 Cefazolin Sodium/Dextrose 1 gm (/ Premix) 50 mls @ 100 mls/hr IV ONETIME ONE Stop: 04/30/20 11:04 Midazolam HCl (Versed 1 Mg/Ml) Confirm Administered Dose 2 mg .ROUTE .STK-MED ONE Stop: 04/30/20 10:35 Miscellaneous Medication (Phenylephrine 1 Mg/10 Ml-Ns) Confirm Administered Dose 1 mg .ROUTE .STK-MED ONE Stop: 04/30/20 10:34 Miscellaneous Medication (Phenylephrine 1 Mg/10 Ml-Ns) 1 mg IVPUSH ONETIME ONE Stop: 04/30/20 11:22 Neostigmine Methylsulfate (Neostigmine Methylsulfate) Confirm Administered Dose 5 mg .ROUTE .STK-MED ONE Stop: 04/30/20 11:30 Ondansetron HCl (Zofran) 4 mg IVPUSH ONETIME ONE Stop: 04/29/20 23:41 Last Admin: 04/29/20 23:52 Dose: 4 mg Documented by: Ondansetron HCl (Zofran) 4 mg IVPUSH ONETIME ONE Stop: 04/30/20 01:28 Last Admin: 04/30/20 01:39 Dose: 4 mg Documented by: Ondansetron HCl (Zofran) Confirm Administered Dose 4 mg .ROUTE .STK-MED ONE Stop: 04/30/20 10:34 Potassium Chloride (Klor-Con M20) 40 meq PO ONETIME ONE Stop: 04/30/20 04:54 Last Admin: 04/30/20 07:20 Dose: Not Given Documented by: Propofol (Diprivan 20 Ml) Confirm Administered Dose 400 mg .ROUTE .STK-MED ONE Stop: 04/30/20 10:34 Rocuronium [place] (Zemuron) Confirm Administered Dose 50 mg .ROUTE .STK-MED ONE Stop: 04/30/20 10:34 Scopolamine (Transderm-Scop) 1.5 mg TOP ONETIME ONE Stop: 04/30/20 11:01 Last Admin: 04/30/20 11:23 Dose: 1.5 mg Documented by:
[2020-04-30 15:18] VITALS: PULSE 60
[2020-04-30 15:48] VITALS: BP 135/68
--- NOTE | 2020-05-01 07:41 | PCM48HPAN ---
Post Anesthesia Note - EVALUATION WITHIN 48HRS OF ANESTHETIC Vital Signs in Normal Range: Yes Patient Participated in Evaluation: No (per RN) Respiratory Function Stable: Yes Airway Patent: Yes Cardiovascular Function Stable: Yes Hydration Status Stable: Yes Pain Control Satisfactory: Yes Nausea and Vomiting Control Satisfactory: Yes Mental Status Recovered: Yes Vital Signs: Last Vital Signs Temp 36.8 C 04/30/20 15:48 Pulse 60 04/30/20 15:15 Resp 19 04/30/20 15:48 BP 135/68 04/30/20 15:48 Pulse Ox 90 L 04/30/20 15:48 - COMMENTS/OBSERVATIONS Free Text/Narrative:: no anesthesia complications noted
[2020-05-03] MEDS ORDERED: Levothyroxine 50 MCG Tab PO SCH (07:00)
== END 2020-04-30 17:16 | disposition home or self-care (01) ==
LOC: JD.ED 22:58 → JD.ICU 04-30 04:18
PROVIDERS: ADMIT Surgery; ATTEND Surgery
DX: K80.00 Calculus of gallbladder with acute cholecystitis without obstruction (principal); E78.00 Pure hypercholesterolemia, unspecified; I12.9 Hypertensive chronic kidney disease with stage 1 through stage 4 chronic kidney disease, or unspecified chronic kidney disease; N18.30 Chronic kidney disease, stage 3 unspecified; E66.9 Obesity, unspecified; K65.8 Other peritonitis; Z79.899 Other long term (current) drug therapy; Z88.8 Allergy status to other drugs, medicaments and biological substances; Z68.41 Body mass index [BMI] 40.0-44.9, adult; Z20.828 Contact with and (suspected) exposure to other viral communicable diseases
CPT/HCPCS: 36415; 47562; 74177; 76705; 80053; 82248; 83690; 83735; 85007; 85027; 87635; 93005; 94640; 96365; 96366; 96368; 96375; 96376; 99285; A9270; G0378; J0690; J1100; J1170; J2001; J2250; J2370; J2405; J2543; J2704; J2710; J3010; J3475; J3480; J3490; J7030; J7050; J7120; 00790; U0002